=== PATIENT | male | born 1955 | race Caucasian/White ===

== ENCOUNTER 2022-01-07 14:28 | Inpatient (IN) ==
[2022-01-07] MEDS ORDERED: ZANAFLEX PO PRN (16:21)
[2022-01-07 17:07] LABS: BLOOD UREA NITROGEN 9 mg/dL (7-18); CALCIUM 9.2 mg/dL (8.5-10.1); CARBON DIOXIDE 26.7 mmol/L (21-32); CHLORIDE 96 mmol/L (98-107); CREATININE 0.55 mg/dL (0.70-1.30); SODIUM 131 mmol/L (136-145); eGFR NON BLACK RACES > 60 (>60)
[2022-01-07] MEDS: PERCOCET TAB 5/325 MG PO PRN (17:11)
[2022-01-07] MEDS: LR 1,000 ML IV 1,000 ML IV SCH (17:11)
[2022-01-07] MEDS ORDERED: HEPARIN SODIUM INJ 5000 UNITS IVP ONE (17:52)
[2022-01-07 17:53] LABS: BASOPHILS # (AUTO) 0.1 X10^3/uL (0.0-0.1); BASOPHILS % (AUTO) 0.7 % (0.2-1.0); EOSINOPHILS # (AUTO) 0.1 x10^3/uL (0.0-0.2); EOSINOPHILS % (AUTO) 0.5 % (0.9-2.9); HEMATOCRIT 37.6 % (42.0-54.0); HEMOGLOBIN 12.4 g/dL (13.5-18.0); LYMPHOCYTES % (AUTO) 7.7 % (21.0-51.0); MEAN CORPUSCULAR HEMOGLOBIN 30.9 pg (27.0-34.0); MEAN CORPUSCULAR HGB CONC 33.1 g/dL (33.0-35.0); MEAN CORPUSCULAR VOLUME 93.4 fL (80.0-100.0); MEAN PLATELET VOLUME 7.4 fL (7.4-11.0); MONOCYTES # (AUTO) 0.9 x10^3/uL (0.3-0.8); MONOCYTES % (AUTO) 7.4 % (0.0-13.0); NEUTROPHILS # (AUTO) 10.6 x10^3/uL (2.2-4.8); NEUTROPHILS % (AUTO) 83.7 % (42.0-75.0); RED BLOOD COUNT 4.02 X10^6/uL (4.7-6.0); RED CELL DISTRIBUTION WIDTH 16.9 % (11.6-16.5); WHITE BLOOD COUNT 12.6 X10^3/uL (3.6-10.0)
[2022-01-07] MEDS: HEPARIN SODIUM IN D5W 25,000 UNITS/500 ML BAG IV PRN (18:27)
[2022-01-07] MEDS ORDERED: PULMICORT NEB TX 0.5 MG NEB ONE (19:44)
[2022-01-07] MEDS: PULMICORT NEB TX 0.5 MG NEB SCH (20:39)
[2022-01-07] MEDS: SINGULAIR TAB 10 MG PO SCH (21:38)
[2022-01-07] MEDS: KEPPRA TAB 500 MG PO SCH (21:38)
[2022-01-07] MEDS: DILAUDID INJ IVP PRN (21:39)
[2022-01-07] MEDS: AMBIEN PO PRN (22:50)
--- NOTE | 2022-01-07 23:06 | DR.H&P ---
H&P History & Physical for Day of: H&P Date: 01/07/22 Chief Complaint Chief Complaint: Rest pain left foot with gangrenous changes if left great toe and 2nd toe. Allergies Allergies Allergy/AdvReac Type Severity Reaction Status Date / Time acetaminophen Allergy Verified 01/07/22 16:56 [From Darvocet-N] propoxyphene Allergy Verified 01/07/22 16:56 [From Darvocet-N] History of Present Illness History of Present Illness: 66 year old male seen in my office on January 04 with complaints of dry gangrene of the distal left great toe. Patient was scheduled for CTA of aorta with runoff and Doppler studies as he had no palpable distal pulses of either foot . He has a significant tobacco abuse history as well as a history of cerebrovascular accident with no residual neurological deficit and history of myocardial infarction. He had increasing rest pain of the left foot and now has early gangrenous changes of the tip of the left second toe which had occurred since I saw him in the office on 04 of January .Therefore, he presented to the emergency room for evaluation . Past Medical History Past Medical History: Arthritis, Asthma, COPD, CVA (no residual), GERD and AZ (history of AZ) Past Surgical History Surgical History: Angioplasty/Stents (reports revascularizationof LLE in the past , details unknown) and Ortho Surgery Family History Family Medical History: Cancer Social History Does patient currently use any type of tobacco product: Yes Have you used tobacco products in the last 12 months: Yes Type of Tobacco Use: Cigarettes How many years tobacco product used: 50 Alcohol Use: None Drug Use: None Prescription drug monitoring program results: PDMP reviewed with concerns ident ified Medications Home Medications: acetaminophen [From Darvocet-N] Allergy (Verified 01/07/22 16:56) propoxyphene [From Darvocet-N] Allergy (Verified 01/07/22 16:56) Eliquis 3. 5 mg BID Zolpidem 10 mg at bedtime Symbicort 2 puffs BiD Levetiracetam 500 mg BID Montelukast 10 mg po daily Esomeperazole 40 mg po daily Gabaprntin 600 mg po q day Tizanidine 4 m po TID Labs Result Diagrams: 01/07/22 17:45 01/07/22 16:50 Labs: Laboratory WBC 12.6 X10^3/uL (3.6-10.0) H 01/07/22 17:45 RBC 4.02 X10^6/uL (4.7-6.0) L 01/07/22 17:45 Hgb 12.4 g/dL (13.5-18.0) L 01/07/22 17:45 Hct 37.6 % (42.0-54.0) L 01/07/22 17:45 MCV 93.4 fL (80.0-100.0) 01/07/22 17:45 MCH 30.9 pg (27.0-34.0) 01/07/22 17:45 MCHC 33.1 g/dL (33.0-35.0) 01/07/22 17:45 RDW 16.9 % (11.6-16.5) H 01/07/22 17:45 Plt Count 306 X10^3/uL (150.0-450.0) 01/07/22 17:45 MPV 7.4 fL (7.4-11.0) 01/07/22 17:45 Neut % (Auto) 83.7 % (42.0-75.0) H 01/07/22 17:45 Lymph % (Auto) 7.7 % (21.0-51.0) L 01/07/22 17:45 Rush % (Auto) 7.4 % (0.0-13.0) 01/07/22 17:45 Eos % (Auto) 0.5 % (0.9-2.9) L 01/07/22 17:45 Baso % (Auto) 0.7 % (0.2-1.0) 01/07/22 17:45 Neut # (Auto) 10.6 x10^3/uL (2.2-4.8) H 01/07/22 17:45 Lymph # (Auto) 1.0 X10^3/uL (1.3-2.9) L 01/07/22 17:45 Rush # (Auto) 0.9 x10^3/uL (0.3-0.8) H 01/07/22 17:45 Eos # (Auto) 0.1 x10^3/uL (0.0-0.2) 01/07/22 17:45 Baso # (Auto) 0.1 X10^3/uL (0.0-0.1) 01/07/22 17:45 Absolute Nucleated RBC 0.1 /100WBC 01/07/22 17:45 PT 12.8 SECONDS (11.8-14.3) 01/07/22 16:50 INR Target Range - 01/07/22 16:50 INR 1.01 (0.8-1.3) 01/07/22 16:50 APTT 28.9 SECONDS (22.9-36.5) 01/07/22 16:50 PTT Comment - 01/07/22 16:50 Sodium 131 mmol/L (136-145) L 01/07/22 16:50 Corrected Sodium TNP 01/07/22 16:50 Potassium 4.7 mmol/L (3.5-5.1) 01/07/22 16:50 Chloride 96 mmol/L (98-107) L 01/07/22 16:50 Carbon Dioxide 26.7 mmol/L (21-32) 01/07/22 16:50 BUN 9 mg/dL (7-18) 01/07/22 16:50 Creatinine 0.55 mg/dL (0.70-1.30) L 01/07/22 16:50 Est GFR (MDRD) Af Amer > 60 (>60) 01/07/22 16:50 Est GFR (MDRD) Non-Af > 60 (>60) 01/07/22 16:50 Glucose 98 mg/dL (65-99) 01/07/22 16:50 Calcium 9.2 mg/dL (8.5-10.1) 01/07/22 16:50 SARS-CoV-2 (PCR) Negative (NEGATIVE) 01/07/22 14:49 Influenza Type A (PCR) Negative (NEGATIVE) 01/07/22 14:49 Influenza Type B (PCR) Negative (NEGATIVE) 01/07/22 14:49 RSV (PCR) Negative (NEGATIVE) 01/07/22 14:49 Review of Systems Constitutional: See HPI Eyes: No Symptoms Reported ENT: No Symptoms Reported Respiratory: No Symptoms Reported Cardiovascular: No Symptoms Reported Gastrointestinal: No Symptoms Reported Genitourinary: No Symptoms Reported Musculoskeletal: See HPI Skin: See HPI Neurological: No Symptoms Reported Physical Exam Vital Signs: Temperature 97.9 F Pulse Rate [Left Brachial] 99 Pulse Rate 99 Respiratory Rate 18 Blood Pressure [Left Arm] 137/83 O2 Sat by Pulse Oximetry 99 Oriented: Normal, Time, Person and Place Eyes: Normal Ear: Normal Nose: Normal Throat: Normal Respiratory: Diminished Throughout Cardiovascular: Normal and Other (Femoral pulses are papable . No distal pulses palpable either foot or ankle .) : Normal Auscultation: Bowel Sounds: Normal Palpation: Normal Tenderness: Normal Skin: Normal Musculoskeletal: Normal Psychiatric: Normal Mood Description: Anxious Speech Pattern: Clear Assessment/Plan (1) Critical limb ischemia of left lower extremity: Status: Acute Plan: Admit, heparin drip, CTA, ABIs, and ultrasound of arteries LE. Will need intervention of the left leg after studies done and will need amputation of the left great toe and possibly the left second toe as well. (2) COPD (chronic obstructive pulmonary disease): Status: Acute Plan: usual home medications (3) Hx of myocardial infarction: Status: Acute Plan: EKG , doubt stress test will be necessary as he has no chest pain. (4) History of CVA (cerebrovascular accident): Status: Acute (5) GERD (gastroesophageal reflux disease): Status: Acute Plan: po Protonix Review H&P Reviewed: Yes Patient was examined?: Yes
[2022-01-08] MEDS: HEPARIN SODIUM INJ 5000 UNITS IVP ONE ×2 (01:30→21:36)
[2022-01-08] MEDS ORDERED: HEPARIN SODIUM INJ 5000 UNITS ONE ×4 (01:37→21:25)
[2022-01-08] MEDS: DILAUDID INJ IVP PRN ×4 (02:35→18:46)
[2022-01-08] MEDS: LR 1,000 ML IV 1,000 ML IV SCH (06:43)
[2022-01-08] MEDS: KEPPRA TAB 500 MG PO SCH ×2 (08:45→21:53)
[2022-01-08] MEDS: NEURONTIN TAB 600 MG PO SCH (08:45)
[2022-01-08] MEDS: PROTONIX TAB 40 MG PO SCH (08:46)
[2022-01-08] MEDS: PERCOCET TAB 5/325 MG PO PRN ×3 (08:46→21:50)
[2022-01-08] MEDS: NICOTINE PATCH TD SCH (08:47)
[2022-01-08] MEDS: PULMICORT NEB TX 0.5 MG NEB SCH ×2 (08:55→20:20)
[2022-01-08] MEDS: HEPARIN SODIUM IN D5W 25,000 UNITS/500 ML BAG IV PRN (08:57)
[2022-01-08] MEDS: REFLEX: PROVENTIL NEB & PulmiCORT NEB~ NEB SCH ×2 (09:18→17:43)
[2022-01-08 10:39] VITALS: BMI 14.5
--- NOTE | 2022-01-08 12:46 | NOTE.SOAP ---
Soap Note Note for Day of Date of Exam: 01/08/22 Subjective Data Subjective Data: Left foot pain under better control . No further advancement of necrosis left foot. Objective Data Temperature: 98.3 F Pulse Rate: 89 Respiratory Rate: 20 Blood Pressure: 116/74 O2 Sat by Pulse Oximetry: 96 Objective Data: Unchanged . Assessment Assessment: Limb threatening ischemia left leg leg. For CTA today unless the C T scanner remains broken Plan Plan: As above, Continue heparin drip.
[2022-01-08] MEDS: SINGULAIR TAB 10 MG PO SCH (21:54)
[2022-01-08] MEDS: AMBIEN PO PRN (21:54)
[2022-01-09] MEDS: HEPARIN SODIUM IN D5W 25,000 UNITS/500 ML BAG IV PRN ×2 (00:16→23:57)
[2022-01-09] MEDS: DILAUDID INJ IVP PRN ×4 (03:55→18:20)
[2022-01-09] MEDS: LR 1,000 ML IV 1,000 ML IV SCH ×2 (07:42→23:00)
[2022-01-09] MEDS: KEPPRA TAB 500 MG PO SCH ×2 (09:35→21:54)
[2022-01-09] MEDS: PROTONIX TAB 40 MG PO SCH (09:35)
[2022-01-09] MEDS: NEURONTIN TAB 600 MG PO SCH (09:35)
[2022-01-09] MEDS: PULMICORT NEB TX 0.5 MG NEB SCH ×2 (09:49→20:55)
[2022-01-09] MEDS: NICOTINE PATCH TD SCH (10:00)
[2022-01-09] MEDS: PERCOCET TAB 5/325 MG PO PRN ×2 (10:15→16:39)
--- NOTE | 2022-01-09 19:18 | NOTE.SOAP ---
Soap Note Note for Day of Date of Exam: 01/09/22 Subjective Data Subjective Data: Stable, continues to complain of left foot pain. Unable to perform CT angiogram yesterday due to the CT scanner being down. Continues on Heparin drip. Objective Data Temperature: 97.9 F Pulse Rate: 97 Respiratory Rate: 18 Blood Pressure: 131/89 O2 Sat by Pulse Oximetry: 98 Objective Data: left great toe with gangrene .Tender left 2nd toe PTT=65.5 Assessment Assessment: Left leg critical limb threatening ischemia. Continue heparin drip. Arterial u/s and ABIs in AM. Will forego CTA since machine is not working and plan on table arteriogram and intervention either tomorrow or the next day. Will make NPO after midnight.
[2022-01-09] MEDS: SINGULAIR TAB 10 MG PO SCH (21:54)
[2022-01-09] MEDS: AMBIEN PO PRN (21:54)
[2022-01-10] MEDS: PERCOCET TAB 5/325 MG PO PRN ×2 (00:30→18:30)
[2022-01-10] MEDS: DILAUDID INJ IVP PRN ×4 (01:57→21:59)
[2022-01-10 06:53] LABS: BASOPHILS % (AUTO) 0.8 % (0.2-1.0); EOSINOPHILS # (AUTO) 0.1 x10^3/uL (0.0-0.2); EOSINOPHILS % (AUTO) 2.5 % (0.9-2.9); HEMOGLOBIN 9.9 g/dL (13.5-18.0); LYMPHOCYTES # (AUTO) 0.6 X10^3/uL (1.3-2.9); LYMPHOCYTES % (AUTO) 12.5 % (21.0-51.0); MEAN CORPUSCULAR HEMOGLOBIN 30.4 pg (27.0-34.0); MEAN CORPUSCULAR VOLUME 92.2 fL (80.0-100.0); MEAN PLATELET VOLUME 7.9 fL (7.4-11.0); MONOCYTES # (AUTO) 0.5 x10^3/uL (0.3-0.8); MONOCYTES % (AUTO) 10.7 % (0.0-13.0); NEUTROPHILS # (AUTO) 3.6 x10^3/uL (2.2-4.8); NEUTROPHILS % (AUTO) 73.5 % (42.0-75.0); RED BLOOD COUNT 3.25 X10^6/uL (4.7-6.0); RED CELL DISTRIBUTION WIDTH 16.7 % (11.6-16.5); WHITE BLOOD COUNT 4.9 X10^3/uL (3.6-10.0)
[2022-01-10 07:11] LABS: ALANINE AMINOTRANSFERASE 17 Units/L (12-78); ALKALINE PHOSPHATASE 109 Units/L (46-116); ASPARTATE AMINO TRANSFERASE 16 Units/L (15-37); BLOOD UREA NITROGEN 3 mg/dL (7-18); CALCIUM 8.3 mg/dL (8.5-10.1); CARBON DIOXIDE 24.9 mmol/L (21-32); CHLORIDE 104 mmol/L (98-107); COR CA(FOR HYPOALB) 9.9 mg/dL (8.5-10.1); CREATININE 0.51 mg/dL (0.70-1.30); SODIUM 138 mmol/L (136-145); TOTAL PROTEIN 5.3 g/dL (6.4-8.2); eGFR NON BLACK RACES > 60 (>60)
[2022-01-10] MEDS: PULMICORT NEB TX 0.5 MG NEB SCH ×2 (08:50→21:10)
[2022-01-10] MEDS ORDERED: MARCAINE 0.5% ONE (09:05)
[2022-01-10] MEDS ORDERED: HEPARIN SODIUM IN D5W 75,000 UNITS/1,500 ML BAG ONE (09:05)
[2022-01-10] MEDS ORDERED: LR 1,000 ML IV 1,000 ML IV ONE (09:07)
[2022-01-10] MEDS ORDERED: NS 100 ML IV 100 ML ONE (09:10)
[2022-01-10] MEDS ORDERED: ANCEF VIAL 1 GRAM ONE (09:10)
[2022-01-10] MEDS ORDERED: FENTANYL VIAL INJ 100 mcg ONE (09:13)
[2022-01-10] MEDS ORDERED: VERSED ONE ×3 (09:14→11:09)
[2022-01-10] MEDS ORDERED: DIPRIVAN VIAL 20 ML ONE ×2 (09:14→10:27)
[2022-01-10] MEDS ORDERED: DIPRIVAN VIAL ONE (09:19)
[2022-01-10] MEDS ORDERED: HEPARIN SODIUM INJ 5000 UNITS ONE ×2 (09:19)
[2022-01-10] MEDS ORDERED: KETAMINE HCL ONE (09:26)
[2022-01-10] MEDS ORDERED: PROTAMINE SULFATE 50 MG VIAL ONE (09:26)
[2022-01-10] MEDS: NEURONTIN TAB 600 MG PO SCH (11:17)
[2022-01-10] MEDS: KEPPRA TAB 500 MG PO SCH ×2 (11:17→21:05)
[2022-01-10] MEDS: PROTONIX TAB 40 MG PO SCH (11:18)
[2022-01-10] MEDS: NICOTINE PATCH TD SCH ×2 (11:18→13:00)
[2022-01-10] MEDS ORDERED: DILAUDID INJ ONE (11:42)
--- NOTE | 2022-01-10 11:56 | OR.IMMED ---
IMMEDIATE POST-OP NOTE Immediate Post-Op Note Pre-Op Diagnosis: Rest pain left leg, gangrenous changes Left great toe Post-Op Diagnosis: same Procedure: aortogram, left lower extremity arteriogram , balloon angioplasty left posterior tibial and left anterior tibial arteries,atherectomy and drug- coated balloon angioplasty left superficial femoral artery , amputation left great toe Description of Procedure: see operative summary Surgeon/Manager Sterile: Philip Findings: Severe disease mid superficial femoral artery left leg. Complete occlusion distal left anterior tibial and distal left posterior tibial artery left leg Specimens Removed: plaque Estimated Blood Loss: 100 cc Drains: NONE Complications: none Discharge Progress Notes: return to floor. Discontinue Heparin drip. Return to floor. Discontinue Heparin drip. Discontinued right groin sheath later today Condition: Stable Final Diagnosis: as above
[2022-01-10] MEDS ORDERED: MICRO K EXTEN CAP 10 MEQ PO PRN (13:49)
[2022-01-10] MEDS ORDERED: POTASSIUM CHL 40 MEQ/NS 0.45% 500 ML IV PRN (13:49)
[2022-01-10] MEDS ORDERED: K-RIDER 10 MEQ/NS 100 ML 10 MEQ/100 ML BAG IV PRN (13:49)
[2022-01-10] MEDS ORDERED: POTASSIUM CHL 60 MEQ/NS 0.45% 500 ML IV PRN (13:49)
[2022-01-10] MEDS ORDERED: MAGNESIUM SULFATE 1 GRAM/100 mL PREMIX 1 G/100 ML BAG IV PRN (13:49)
[2022-01-10] MEDS ORDERED: POTASSIUM CHLORIDE LIQ 20 MEQ UDC PO PRN (13:49)
[2022-01-10] MEDS ORDERED: KLOR-CON PO PRN (13:49)
[2022-01-10] MEDS ORDERED: K-DUR TAB 20 MEQ PO PRN (13:49)
--- NOTE | 2022-01-10 17:24 | DR.OPNOTE ---
OP NOTE Pre-Op Diagnosis: Rest pain left lower extremity, gangrene left great toe Post-Op Diagnosis: same Procedure Date Date Of Procedure: 01/10/22 Procedure: PROCEDURE : diagnostic aortogram , Diagnostic arteriogram left lower extremity, angioplasty left posterior tibial artery , angioplasty left anterior tibial artery, atherectomy and drug-coated balloon angioplasty left superficial femoral artery NARRATIVE: The patient was taken to the operative suite and placed in the Supine position. The right groin and the left lower extremity were prepped and draped in sterile fashion. He was given intravenous sedation which was supervised by myself. Time out for the procedure obtained. Ultrasound was used to identify the right common femoral artery and the skin overlying it infiltrated with 0. 5% Marcaine. Ultrasound used to guide puncture of the right common femoral artery and a 0. 012 inch guide wire placed . Incision made over the guide wire at the skin edge and micro sheath placed over the guide wire into the right common femoral artery. The small wire exchanged for a 0. 035 in Advantage glidewire and the micro sheath exchanged for a 5 Fr vascular sheath . RIM catheter was placed over the guide wire into the aorta and diagnostic aortogram carried out showing normal aorta and normally iliac arteries bilaterally. The RIM catheter was used to guide the wire down the left side and the RIM catheter replaced for a Trailblazer catheter which was used to perform sequential arteriogram of the entire left lower extremity showing severe disease in the mid portion of the left superficial femoral artery with distal obstruction of both the left anterior and posterior tibial arteries. The patient was given 5000 units of Heparin and the sheath in the right groin exchanged for a 6 Swedish destination sheath which was parked in the left common femoral artery. The Trailblazer catheter was placed all the way down into the posterior tibial artery and the large wire exchanged for a 0. 014 inch guide wire . Over the wire I placed a 2. 5x 150 mm [employer] balloon and inflated it. Post-procedure arteriogram showed excellent result with flow all the way to the foot. Trailblazer catheter was pulled back into the tibial-peroneal trunk and the 0. 014 inch wire exchanged for a 0. 018 inch wire which was used to traverse the entire left anterior tibial artery across this obstruction into the left foot. This area of obstruction was ballooned open with a 2.0 mmx 100 mm [employer] balloon. Repeat arteriogram show excellent results here as well. At this point the Trailblazer catheter was backed up into the popliteal artery and a 0. 18 inch wire exchanged for the 0.014 inch Spider basket and wire which were deployed in the left popliteal artery . Hawk one atherectomy device was then placed over the wire and used to perform four quadrant atherectomy over the area of severe disease in the mid portion of the left superficial femoral artery over the area in question and then ballooned it open with a 6 mm by 200 mm [employer] drug-coated balloon which was inflated for 3 minutes .Arteriogram still showed evidence of filling defect in the mid portion of approximately 15 mm ,therefore I placed a 6 mm by 80 mm Alluvia drug-coated stent over it and deployed it. Arteriogram showed excellent result. Patient had been given an additional 3000 units of Heparin at one hour. Trailblazer catheter used to remove the Spider basket and the destination sheath pulled back into the aorta and the 0. 035 inch wire placed into the aorta. The 6 Swedish destination sheath was exchanged for a 6 Swedish short sheath in the right groin and the patient taken to the recovery room in good condition. He was given 30 mg of IV protamine. The left great toe had already been prepped and draped in sterile fashion and the skin at the base the left great toe infiltrated with 20 cc's of 0. 5% Marcaine. And elliptical incision was made at the base of the left great toe and electrocautery used to divide all the subcutaneous tissue and tendons and Joint capsule between the metatarsal - phalangeal joint removing the left great toe. The head of the metatarsal removed with a Rongeur The wound closed with interrupted 3-0 Nylon sutures. Dressing applied . The right groin sheath was pulled by me later on the floor and the patient did well. Type of Anesthesia: Local (0. 5% marcaine ) Anesthesia Comment: plus MAC Specimen/Pathology: plaque Type of Fluids Used:: Lactated Ringers Total Amount of Fluid Infused:: 650 cc Urine output: 650cc EBL: 100 cc Drains/Tubes Placed: Howard (removed at end of case ) Complications:: none Needle/Sponge Count:: correct Disposition/Condition: Pt. tolerated procedure without difficulty. Taken to PACU in stable condition
[2022-01-10] MEDS ORDERED: REMERON PO SCH (21:00)
[2022-01-10] MEDS: AMBIEN PO PRN (21:05)
[2022-01-10] MEDS: SINGULAIR TAB 10 MG PO SCH (21:05)
[2022-01-10] MEDS: LR 1,000 ML IV 1,000 ML IV SCH (23:35)
[2022-01-11] MEDS: LR 1,000 ML IV 1,000 ML IV SCH (05:45)
[2022-01-11] MEDS: PERCOCET TAB 5/325 MG PO PRN (06:46)
[2022-01-11] MEDS: PULMICORT NEB TX 0.5 MG NEB SCH (08:50)
[2022-01-11] MEDS ORDERED: LOVENOX INJ 40 MG SYR SC SCH (09:00)
[2022-01-11] MEDS: DILAUDID INJ IVP PRN (09:10)
[2022-01-11] MEDS: NICOTINE PATCH TD SCH (10:26)
[2022-01-11] MEDS: KEPPRA TAB 500 MG PO SCH (10:26)
[2022-01-11] MEDS: PROTONIX TAB 40 MG PO SCH (10:26)
[2022-01-11] MEDS: NEURONTIN TAB 600 MG PO SCH (10:27)
--- NOTE | 2022-01-11 12:01 | W.DIS.FURT ---
Summary of Discharge Discharge Summary of Date Date of Exam: 01/11/22 Admission Date Date of Admission: 01/07/22 Admission Diagnosis Hospital Course: 66 yo male seen in the office with gangrene of left great toe and rest pain left foot with history of significant tobacco abuse . He was to have multiple vascular studies but presented with increasing rest pain of the left foot with discoloration over the end of the left second toe. He was admitted and placed on a Heparin drip and his pain controlled. Attempts to obtain a CT angiogram were unsuccessful as the CT scanner was broken therefore I planned to take him to the operating Suite on Monday , performing on table ateriogram of the left lower extremity showing significant stenosis of the left superficial femoral artery and complete occlusion of both the distal anterior tibial and posterior tibial arteries. He underwent angioplasty of both the anterior tibial and posterior tibial arteries as well as atherectomy and drug-coated balloon angioplasty left superficial femoral artery. In addition he had amputation of the left great toe. He has done well. He will be discharged home on his usual medications plus Percocet 5 mg tablets when every 6 hours PRN, #30 . He is already on Oxcodone chronically and I have spoken to DEBORAH Pack for Dr. Raymond ,about this and he will handle the pain medications as he sees fit . The patient is already on Eliquis. He is having post-procedure arterial studies today to assess the flow after intervention. He will be given a walker and will follow up with me in 1 week. Vital Signs: Vital Signs (72 hours) 01/08/22 12:46 01/08/22 13:00 01/08/22 13:30 Temperature 98.3 F 97.6 F Pulse Rate 89 Pulse Rate [Left Brachial] 106 H Respiratory Rate 20 18 20 Blood Pressure 116/74 Blood Pressure [Left Arm] 123/86 O2 Sat by Pulse Oximetry 96 99 01/08/22 14:00 01/08/22 15:00 01/08/22 15:30 Temperature Pulse Rate Pulse Rate [Left Brachial] 106 H 106 H Respiratory Rate 20 18 18 Blood Pressure Blood Pressure [Left Arm] 123/86 127/86 O2 Sat by Pulse Oximetry 99 99 01/08/22 16:00 01/08/22 16:30 01/08/22 17:00 Temperature 97.3 F L Pulse Rate Pulse Rate [Left Brachial] 97 H 100 H Respiratory Rate 18 12 18 Blood Pressure Blood Pressure [Left Arm] 131/89 128/82 O2 Sat by Pulse Oximetry 99 99 01/08/22 18:00 01/08/22 18:46 01/08/22 19:00 Temperature 98.1 F Pulse Rate Pulse Rate [Left Brachial] 96 H 94 H Respiratory Rate 18 20 20 Blood Pressure Blood Pressure [Left Arm] 116/80 110/78 O2 Sat by Pulse Oximetry 100 98 01/08/22 19:16 01/08/22 20:00 01/08/22 20:20 Temperature Pulse Rate 91 H Pulse Rate [Left Brachial] 89 Respiratory Rate 20 18 Blood Pressure Blood Pressure [Left Arm] 106/78 O2 Sat by Pulse Oximetry 100 98 01/08/22 21:00 01/08/22 21:50 01/08/22 22:00 Temperature Pulse Rate Pulse Rate [Left Brachial] 103 H 110 H Respiratory Rate 20 20 20 Blood Pressure Blood Pressure [Left Arm] 111/73 110/68 O2 Sat by Pulse Oximetry 99 98 01/08/22 22:50 01/08/22 23:00 01/09/22 00:00 Temperature 97.5 F L Pulse Rate Pulse Rate [Left Brachial] 114 H 91 H Respiratory Rate 20 18 20 Blood Pressure Blood Pressure [Left Arm] 120/80 110/78 O2 Sat by Pulse Oximetry 96 97 01/09/22 01:00 01/09/22 02:00 01/09/22 03:55 Temperature Pulse Rate Pulse Rate [Left Brachial] 93 H 93 H Respiratory Rate 18 20 20 Blood Pressure Blood Pressure [Left Arm] 108/70 109/75 O2 Sat by Pulse Oximetry 97 98 01/09/22 04:00 01/09/22 04:25 01/09/22 05:00 Temperature 98.0 F Pulse Rate Pulse Rate [Left Brachial] 96 H 86 Respiratory Rate 20 20 20 Blood Pressure Blood Pressure [Left Arm] 124/69 117/75 O2 Sat by Pulse Oximetry 98 97 01/09/22 06:00 01/09/22 07:00 01/09/22 08:00 Temperature 97.1 F L Pulse Rate Pulse Rate [Left Brachial] 88 98 H 93 H Respiratory Rate 22 18 18 Blood Pressure Blood Pressure [Left Arm] 129/74 123/88 127/82 O2 Sat by Pulse Oximetry 99 98 98 01/09/22 08:38 01/09/22 09:00 01/09/22 09:08 Temperature Pulse Rate Pulse Rate [Left Brachial] 96 H Respiratory Rate 20 18 20 Blood Pressure Blood Pressure [Left Arm] 124/79 O2 Sat by Pulse Oximetry 98 01/09/22 09:50 01/09/22 10:00 01/09/22 10:15 Temperature Pulse Rate 88 Pulse Rate [Left Brachial] 90 Respiratory Rate 18 20 Blood Pressure Blood Pressure [Left Arm] 143/78 O2 Sat by Pulse Oximetry 99 98 01/09/22 11:00 01/09/22 11:15 01/09/22 12:00 Temperature 97.6 F Pulse Rate Pulse Rate [Left Brachial] 96 H 104 H Respiratory Rate 18 20 18 Blood Pressure Blood Pressure [Left Arm] 126/85 146/77 O2 Sat by Pulse Oximetry 99 99 01/09/22 13:00 01/09/22 14:00 01/09/22 14:35 Temperature Pulse Rate Pulse Rate [Left Brachial] 104 H 105 H Respiratory Rate 18 18 20 Blood Pressure Blood Pressure [Left Arm] 127/88 145/85 O2 Sat by Pulse Oximetry 99 96 01/09/22 15:00 01/09/22 15:05 01/09/22 16:00 Temperature 97.9 F Pulse Rate Pulse Rate [Left Brachial] 94 H 99 H Respiratory Rate 18 20 18 Blood Pressure Blood Pressure [Left Arm] 137/94 104/88 O2 Sat by Pulse Oximetry 99 99 01/09/22 16:39 01/09/22 17:00 01/09/22 17:39 Temperature Pulse Rate Pulse Rate [Left Brachial] 95 H Respiratory Rate 22 18 20 Blood Pressure Blood Pressure [Left Arm] 139/84 O2 Sat by Pulse Oximetry 93 L 01/09/22 18:00 01/09/22 18:20 01/09/22 18:50 Temperature Pulse Rate Pulse Rate [Left Brachial] 97 H Respiratory Rate 18 20 20 Blood Pressure Blood Pressure [Left Arm] 131/89 O2 Sat by Pulse Oximetry 98 01/09/22 19:00 01/09/22 19:18 01/09/22 20:00 Temperature 97.9 F 98.2 F Pulse Rate 97 H Pulse Rate [Left Brachial] 105 H 93 H Respiratory Rate 20 18 20 Blood Pressure 131/89 Blood Pressure [Left Arm] 145/95 139/84 O2 Sat by Pulse Oximetry 96 98 95 01/09/22 20:55 01/09/22 21:00 01/09/22 22:00 Temperature Pulse Rate 92 H Pulse Rate [Left Brachial] 95 H 91 H Respiratory Rate 20 20 Blood Pressure Blood Pressure [Left Arm] 137/82 137/88 O2 Sat by Pulse Oximetry 94 L 95 96 01/09/22 23:00 01/10/22 00:00 01/10/22 00:30 Temperature 98.0 F Pulse Rate Pulse Rate [Left Brachial] 87 97 H Respiratory Rate 18 20 20 Blood Pressure Blood Pressure [Left Arm] 134/86 135/91 O2 Sat by Pulse Oximetry 96 98 01/10/22 01:00 01/10/22 01:30 01/10/22 01:57 Temperature Pulse Rate Pulse Rate [Left Brachial] 93 H Respiratory Rate 18 20 20 Blood Pressure Blood Pressure [Left Arm] 133/90 O2 Sat by Pulse Oximetry 01/10/22 02:00 01/10/22 02:27 01/10/22 03:00 Temperature Pulse Rate Pulse Rate [Left Brachial] 110 H 93 H Respiratory Rate 18 20 20 Blood Pressure Blood Pressure [Left Arm] 125/86 127/85 O2 Sat by Pulse Oximetry 01/10/22 04:00 01/10/22 06:00 01/10/22 07:00 Temperature 97.9 F 97.9 F Pulse Rate Pulse Rate [Left Brachial] 87 96 H 96 H Respiratory Rate 20 20 22 Blood Pressure Blood Pressure [Left Arm] 133/89 137/86 140/86 O2 Sat by Pulse Oximetry 97 98 98 01/10/22 08:00 01/10/22 08:50 01/10/22 11:42 Temperature Pulse Rate 95 H Pulse Rate [Left Brachial] 86 Respiratory Rate 20 18 Blood Pressure Blood Pressure [Left Arm] 155/94 O2 Sat by Pulse Oximetry 93 L 99 01/10/22 11:50 01/10/22 12:05 01/10/22 12:12 Temperature 97.6 F 97.6 F Pulse Rate Pulse Rate [Left Brachial] 91 H 92 H Respiratory Rate 20 18 22 Blood Pressure Blood Pressure [Left Arm] 106/78 128/78 O2 Sat by Pulse Oximetry 96 98 01/10/22 12:20 01/10/22 12:35 01/10/22 12:50 Temperature 97.6 F 97.6 F Pulse Rate Pulse Rate [Left Brachial] 91 H 87 82 Respiratory Rate 20 18 20 Blood Pressure Blood Pressure [Left Arm] 140/95 139/90 136/88 O2 Sat by Pulse Oximetry 98 98 98 01/10/22 13:50 01/10/22 14:50 01/10/22 15:25 Temperature Pulse Rate Pulse Rate [Left Brachial] 95 H 95 H Respiratory Rate 20 22 22 Blood Pressure Blood Pressure [Left Arm] 132/91 138/85 O2 Sat by Pulse Oximetry 98 99 01/10/22 15:50 01/10/22 15:55 01/10/22 16:50 Temperature 97.8 F Pulse Rate Pulse Rate [Left Brachial] 96 H 105 H Respiratory Rate 20 22 18 Blood Pressure Blood Pressure [Left Arm] 137/90 158/89 O2 Sat by Pulse Oximetry 96 97 01/10/22 17:00 01/10/22 18:00 01/10/22 18:30 Temperature Pulse Rate Pulse Rate [Left Brachial] 102 H 98 H Respiratory Rate 18 18 20 Blood Pressure Blood Pressure [Left Arm] 133/88 132/99 O2 Sat by Pulse Oximetry 97 99 01/10/22 19:30 01/10/22 20:00 01/10/22 21:10 Temperature Pulse Rate 96 H Pulse Rate [Left Brachial] 106 H Respiratory Rate 20 20 Blood Pressure Blood Pressure [Left Arm] 137/99 O2 Sat by Pulse Oximetry 97 97 01/10/22 21:59 01/10/22 22:29 01/11/22 00:33 Temperature 97.3 F L Pulse Rate Pulse Rate [Left Brachial] 98 H Respiratory Rate 20 20 18 Blood Pressure Blood Pressure [Left Arm] 120/74 O2 Sat by Pulse Oximetry 97 01/11/22 04:31 01/11/22 06:46 01/11/22 07:46 Temperature 97.8 F Pulse Rate Pulse Rate [Left Brachial] 96 H Respiratory Rate 18 20 20 Blood Pressure Blood Pressure [Left Arm] 129/86 O2 Sat by Pulse Oximetry 97 01/11/22 08:00 01/11/22 08:50 01/11/22 09:10 Temperature 98.0 F Pulse Rate 106 H Pulse Rate [Left Brachial] 94 H Respiratory Rate 20 20 Blood Pressure Blood Pressure [Left Arm] 146/88 O2 Sat by Pulse Oximetry 99 96 01/11/22 09:40 Temperature Pulse Rate Pulse Rate [Left Brachial] Respiratory Rate 20 Blood Pressure Blood Pressure [Left Arm] O2 Sat by Pulse Oximetry Labs: Laboratory Last Values WBC 4.9 X10^3/uL (3.6-10.0) 01/10/22 06:07 RBC 3.25 X10^6/uL (4.7-6.0) L 01/10/22 06:07 Hgb 9.9 g/dL (13.5-18.0) L D 01/10/22 06:07 Hct 30.0 % (42.0-54.0) L 01/10/22 06:07 MCV 92.2 fL (80.0-100.0) 01/10/22 06:07 MCH 30.4 pg (27.0-34.0) 01/10/22 06:07 MCHC 33.0 g/dL (33.0-35.0) 01/10/22 06:07 RDW 16.7 % (11.6-16.5) H 01/10/22 06:07 Plt Count 251 X10^3/uL (150.0-450.0) 01/10/22 06:07 MPV 7.9 fL (7.4-11.0) 01/10/22 06:07 Neut % (Auto) 73.5 % (42.0-75.0) 01/10/22 06:07 Lymph % (Auto) 12.5 % (21.0-51.0) L 01/10/22 06:07 [place] % (Auto) 10.7 % (0.0-13.0) 01/10/22 06:07 Eos % (Auto) 2.5 % (0.9-2.9) 01/10/22 06:07 Baso % (Auto) 0.8 % (0.2-1.0) 01/10/22 06:07 Neut # (Auto) 3.6 x10^3/uL (2.2-4.8) 01/10/22 06:07 Lymph # (Auto) 0.6 X10^3/uL (1.3-2.9) L 01/10/22 06:07 [place] # (Auto) 0.5 x10^3/uL (0.3-0.8) 01/10/22 06:07 Eos # (Auto) 0.1 x10^3/uL (0.0-0.2) 01/10/22 06:07 Baso # (Auto) 0.0 X10^3/uL (0.0-0.1) 01/10/22 06:07 Absolute Nucleated RBC 0.3 /100WBC 01/10/22 06:07 PT 12.8 SECONDS (11.8-14.3) 01/07/22 16:50 INR Target Range - 01/07/22 16:50 INR 1.01 (0.8-1.3) 01/07/22 16:50 APTT 61.6 SECONDS (22.9-36.5) H 01/10/22 06:07 PTT Comment - 01/10/22 06:07 Sodium 138 mmol/L (136-145) 01/10/22 06:07 Corrected Sodium TNP 01/10/22 06:07 Potassium 3.7 mmol/L (3.5-5.1) 01/11/22 02:35 Chloride 104 mmol/L (98-107) 01/10/22 06:07 Carbon Dioxide 24.9 mmol/L (21-32) 01/10/22 06:07 BUN 3 mg/dL (7-18) L 01/10/22 06:07 Creatinine 0.51 mg/dL (0.70-1.30) L 01/10/22 06:07 Est GFR (MDRD) Af Amer > 60 (>60) 01/10/22 06:07 Est GFR (MDRD) Non-Af > 60 (>60) 01/10/22 06:07 Glucose 103 mg/dL (65-99) H 01/10/22 06:07 Calcium 8.3 mg/dL (8.5-10.1) L 01/10/22 06:07 Corrected Calcium 9.9 mg/dL (8.5-10.1) 01/10/22 06:07 Magnesium 1.6 mg/dL (1.7-2.9) L 01/10/22 14:06 Total Bilirubin 0.20 mg/dL (0.2-1.0) 01/10/22 06:07 AST 16 Units/L (15-37) 01/10/22 06:07 ALT 17 Units/L (12-78) 01/10/22 06:07 Alkaline Phosphatase 109 Units/L (46-116) 01/10/22 06:07 Total Protein 5.3 g/dL (6.4-8.2) L 01/10/22 06:07 Albumin 2.0 g/dL (3.4-5.0) L 01/10/22 06:07 Globulin 3.3 g/dL (2.5-4.5) 01/10/22 06:07 Albumin/Globulin Ratio 0.6 Ratio (1.1-2.1) L 01/10/22 06:07 SARS-CoV-2 (PCR) Negative (NEGATIVE) 01/07/22 14:49 Influenza Type A (PCR) Negative (NEGATIVE) 01/07/22 14:49 Influenza Type B (PCR) Negative (NEGATIVE) 01/07/22 14:49 RSV (PCR) Negative (NEGATIVE) 01/07/22 14:49 Tissue Pathology To follow 01/10/22 11:15 Reason For Visit: LEFT GREAT TOE WOUND Discharge Date Discharge Date: 01/11/22 Discharge Diagnosis All Active Problems (Updated 01/07/22 @ 23:02 by Gianni Palacios) Critical limb ischemia of left lower extremity (Acute) History of CVA (cerebrovascular accident) (Acute) Hx of myocardial infarction (Acute) GERD (gastroesophageal reflux disease) (Acute) COPD (chronic obstructive pulmonary disease) (Acute) Plan of Treatment: Continue with present treatment and follow up plan. Pt is to keep follow up appointment as instructed and take medications as ordered. Discharge Medications Discharge Medications: acetaminophen [From Darvocet-N] Allergy (Verified 01/07/22 16:56) propoxyphene [From Darvocet-N] Allergy (Verified 01/07/22 16:56) CONTINUE taking the following medications budesonide-formoterol [Symbicort] 2 puff INHALATION BID 01/08/22 [History] esomeprazole magnesium 40 mg PO DAILY 01/08/22 [History] gabapentin 300 mg PO TID 01/08/22 [History] levetiracetam 1,000 mg PO DAILY 01/08/22 [History] mirtazapine 30 mg PO HS 01/08/22 [History] montelukast 10 mg PO DAILY 01/08/22 [History] oxycodone 20 mg PO Q6H PRN 01/08/22 [History] tizanidine 4 mg PO TID PRN 01/08/22 [History] New Prescriptions oxycodone-acetaminophen [Percocet] 1 tab PO Q6H PRN #30 tab MDD 4 01/11/22 [Rx] Follow up and Referral Follow Up: 1 Week (Dr. Palacios) Discharge Disposition Discharge Disposition: stable Discharge Condition: stable Discharge Plan Discharge Plan Hospital Course: 66 yo male seen in the office with gangrene of left great toe and rest pain left foot with history of significant tobacco abuse . He was to have multiple vascular studies but presented with increasing rest pain of the left foot with discoloration over the end of the left second toe. He was admitted and placed on a Heparin drip and his pain controlled. Attempts to obtain a CT angiogram were unsuccessful as the CT scanner was broken therefore I planned to take him to the operating Suite on Monday , performing on table ateriogram of the left lower extremity showing significant stenosis of the left superficial femoral artery and complete occlusion of both the distal anterior tibial and posterior tibial arteries. He underwent angioplasty of both the anterior tibial and posterior tibial arteries as well as atherectomy and drug- coated balloon angioplasty left superficial femoral artery. In addition he had amputation of the left great toe. He has done well. He will be discharged home on his usual medications plus Percocet 5 mg tablets when every 6 hours PRN, #30 . He is already on Oxcodone chronically and I have spoken to DEBORAH Pack for Dr. Raymond ,about this and he will handle the pain medications as he sees fit . The patient is already on Eliquis. He is having post-procedure arterial studies today to assess the flow after intervention. He will be given a walker and will follow up with me in 1 week. Patient Disposition: 01 HOME, SELF-CARE Condition: Stable Health Concerns: Post Hospitalization: new medications and changes needed to prevent readmission or further decline. Pt educated and given instructions on all concerns. Care Plan Goals: Problem: Pain/Alteration in Comfort Goal: Improve/ Resolve Pain; Achieve Pain Tolerance Instructions: Take pain medications as prescribed. Contact your primary care provider if your pain is unrelieved or worsens. Follow up with primary care provider as directed. Plan of Treatment: Continue with present treatment and follow up plan. Pt is to keep follow up appointment as instructed and take medications as ordered. Prescriptions: New oxycodone-acetaminophen [Percocet] 5-325 mg Tablet 1 tab PO Q6H MDD 4 PRNQty: 30 RF: 0 No Action tizanidine 4 mg tablet 4 mg PO TID PRN (Reason: Muscle Spasm) RF: 0 mirtazapine 30 mg tablet 30 mg PO HS RF: 0 esomeprazole magnesium 40 mg capsule,delayed release(DR/EC) 40 mg PO DAILY RF: 0 gabapentin 300 mg capsule 300 mg PO TID RF: 0 montelukast 10 mg tablet 10 mg PO DAILY RF: 0 budesonide-formoterol [Symbicort] 160-4.5 mcg/actuation HFA aerosol inhaler 2 puff INHALATION BID RF: 0 oxycodone 20 mg tablet 20 mg PO Q6H PRN (Reason: Pain) RF: 0 levetiracetam 500 mg tablet extended release 24 hr 1,000 mg PO DAILY RF: 0 Follow ups/Referrals Follow ups/Referrals: JESSY RAYMOND [Primary Care Provider] - 01/19/22 3:30 pm Gianni Palacios [STAFF PHYSICIAN] - 01/18/22 9:30 am Instructions Instructions: Managing the Challenge of Quitting Smoking, Smoking Tobacco Information, Adult, Living With an Amputation, Gangrene, Phantom Limb Pain, Traumatic Toe Amputation, Diabetic Neuropathy, Preventing Diabetes Mellitus Complications Stand Alone Forms: Excuse From Work or School, Precautions for COVID19, [facility], Patient Portal, Social Distancing
--- NOTE | 2022-01-11 14:11 | VAS ---
LOWER EXT ARTERIALHISTORY: Left great toe woundComparison:NoneTechnique: Multiple zamorano scale and color flow Doppler images of the right and left lower extremity arterial system were obtained. Interrogation of the common femoral artery, superficial femoral artery, popliteal artery, and tibial arteries was performed.Findings:Right extremity:Common femoral : 93 cm/sSuperficial femoral proximal: 57 cm/sSuperficial femoral mid: 118 cm/sSuperficial femoral distal : 103 cm/sPopliteal : 108 cm/sPosterior tibial : 17 cm/sAnterior tibial /dorsalis pedis: 65 cm/sLeft extremity:Common femoral : 60 cm/sSuperficial femoral proximal: 78 cm/sSuperficial femoral mid: 71 cm/sSuperficial femoral distal :54 cm/sPopliteal : 70 cm/sPosterior tibial : 37 cm/sAnterior tibial /dorsalis pedis: 9 cm/sTechnologist reports that the distal left dorsalis pedis is occluded 3-4 cm above the toe. No images supporting this claim were submitted for review.IMPRESSION:1.No velocities suggestive of hemodynamically significant stenosis of the right and left lower extremity arterial system.2. Technologist reports that the distal left dorsalis pedis is occluded 3-4 cm above the toe. No images supporting this claim were submitted for review.Http://www.ncbi.nlm.nih.gov/pubmed/41622674Aomng ronically signed by: RUBY JOE (Jan 11, 2022 14:10:01)
[2022-01-11 16:10] VITALS: BP 116/69
== END 2022-01-11 15:55 | disposition home or self-care (01) | DRG 272 ==
LOC: MED/SURG → OBSVTOIN 14:29
PROVIDERS: ADMIT Surgery; ATTEND Surgery
DX: J44.9 Chronic obstructive pulmonary disease, unspecified; I25.2 Old myocardial infarction; Z72.0 Tobacco use; I70.262 Atherosclerosis of native arteries of extremities with gangrene, left leg; K21.9 Gastro-esophageal reflux disease without esophagitis; Z86.73 Personal history of transient ischemic attack (TIA), and cerebral infarction without residual deficits; I70.222 Atherosclerosis of native arteries of extremities with rest pain, left leg

== ENCOUNTER 2022-01-20 08:52 | Inpatient (IN) ==
[2022-01-20] MEDS ORDERED: HEPARIN SODIUM IN D5W 25,000 UNITS/500 ML BAG IV PRN (14:25)
[2022-01-20 14:49] LABS: MEAN PLATELET VOLUME 7.2 fL (7.4-11.0); MONOCYTES # (AUTO) 1.4 x10^3/uL (0.3-0.8)
[2022-01-20 14:53] LABS: BASOPHILS # (AUTO) 0.1 X10^3/uL (0.0-0.1); BASOPHILS % (AUTO) 0.4 % (0.2-1.0); EOSINOPHILS # (AUTO) 0.3 x10^3/uL (0.0-0.2); EOSINOPHILS % (AUTO) 1.5 % (0.9-2.9); HEMATOCRIT 34.8 % (42.0-54.0); HEMOGLOBIN 11.6 g/dL (13.5-18.0); LYMPHOCYTES % (AUTO) 5.6 % (21.0-51.0); MEAN CORPUSCULAR HEMOGLOBIN 31.1 pg (27.0-34.0); MEAN CORPUSCULAR HGB CONC 33.4 g/dL (33.0-35.0); MEAN CORPUSCULAR VOLUME 93.2 fL (80.0-100.0); MONOCYTES % (AUTO) 8.1 % (0.0-13.0); NEUTROPHILS # (AUTO) 14.3 x10^3/uL (2.2-4.8); NEUTROPHILS % (AUTO) 84.4 % (42.0-75.0); RED BLOOD COUNT 3.73 X10^6/uL (4.7-6.0); RED CELL DISTRIBUTION WIDTH 16.5 % (11.6-16.5)
[2022-01-20 15:02] LABS: PLATELET MORPHOLOGY COMMENT NORMAL (NORMAL)
[2022-01-20 15:06] LABS: ALANINE AMINOTRANSFERASE 17 Units/L (12-78); ALBUMIN 2.6 g/dL (3.4-5.0); ALKALINE PHOSPHATASE 179 Units/L (46-116); ASPARTATE AMINO TRANSFERASE 21 Units/L (15-37); BLOOD UREA NITROGEN 8 mg/dL (7-18); CALCIUM 8.7 mg/dL (8.5-10.1); CARBON DIOXIDE 27.3 mmol/L (21-32); CHLORIDE 102 mmol/L (98-107); COR CA(FOR HYPOALB) 9.8 mg/dL (8.5-10.1); SODIUM 135 mmol/L (136-145); TOTAL PROTEIN 6.9 g/dL (6.4-8.2); eGFR NON BLACK RACES > 60 (>60)
--- NOTE | 2022-01-20 15:10 | RAD ---
Chest AP portableIndication: Preop for left foot woundFINDINGSThere is no pneumothorax or effusion. There is no dense consolidation. Lungs are hyperinflated with pleural thickening at the bases, particularly on the left.IMPRESSIONCOPD and scarring in lung bases without acute chest process otherwise. Consider nonemergent outpatient CT lung cancer screening program, given findings of COPD and possible smoking history. Correlate clinicallyElectronically signed by: GAVIN LARRY (Jan 20, 2022 15:08:55)
[2022-01-20 15:48] VITALS: BMI 15.6
[2022-01-20] MEDS ORDERED: ROXICODONE TAB 15 MG PO PRN (16:01)
[2022-01-20] MEDS ORDERED: HEPARIN SODIUM INJ 5000 UNITS IVP ONE (16:41)
[2022-01-20] MEDS: LR 1,000 ML IV 1,000 ML IV SCH (16:55)
[2022-01-20] MEDS ORDERED: PULMICORT NEB TX 0.5 MG NEB ONE (19:57)
[2022-01-20] MEDS ORDERED: Atrovent NEB TX 0.02% ONE (19:57)
[2022-01-20] MEDS: DILAUDID INJ IVP PRN (20:57)
[2022-01-20] MEDS: REMERON PO SCH (20:57)
[2022-01-20] MEDS: SINGULAIR TAB 10 MG PO SCH (20:57)
[2022-01-20] MEDS: PULMICORT NEB TX 0.5 MG NEB SCH (21:00)
[2022-01-20] MEDS ORDERED: AMBIEN PO PRN (21:00)
[2022-01-20] MEDS: Atrovent NEB TX 0.02% NEB SCH (21:00)
[2022-01-20] MEDS: NEURONTIN CAP 300 MG PO SCH (22:05)
[2022-01-20] MEDS: ZANAFLEX PO SCH (22:06)
[2022-01-20 23:27] LABS: BILIRUBIN,URINE NEGATIVE (NEGATIVE); BLOOD/HEMOGLOBIN,URINE NEGATIVE (NEGATIVE); GLUCOSE, URINE NEGATIVE (NEGATIVE); KETONES,URINE NEGATIVE (NEGATIVE); LEUKOCYTE ESTERASE ,URINE NEGATIVE (NEGATIVE); NITRITES,URINE NEGATIVE (NEGATIVE); PROTEIN,URINE NEGATIVE (NEGATIVE); UROBILINOGEN,URINE NORMAL (NORMAL)
[2022-01-20 23:33] LABS: APPEARANCE,URINE CLEAR (CLEAR); COLOR,URINE STRAW (YELLOW)
[2022-01-20] MEDS ORDERED: LOPRESSOR INJ 5 MG AMP IVP STA (23:44)
[2022-01-21] MEDS ORDERED: HEPARIN SODIUM INJ 5000 UNITS IVP ONE (00:02)
[2022-01-21] MEDS ORDERED: BENADRYL CREAM TOPICAL TOP PRN (00:43)
[2022-01-21 05:02] LABS: BASOPHILS % (AUTO) 0.3 % (0.2-1.0); EOSINOPHILS # (AUTO) 0.1 x10^3/uL (0.0-0.2); EOSINOPHILS % (AUTO) 0.8 % (0.9-2.9); HEMATOCRIT 28.6 % (42.0-54.0); HEMOGLOBIN 9.6 g/dL (13.5-18.0); LYMPHOCYTES % (AUTO) 8.3 % (21.0-51.0); MEAN CORPUSCULAR HEMOGLOBIN 30.9 pg (27.0-34.0); MEAN CORPUSCULAR HGB CONC 33.5 g/dL (33.0-35.0); MEAN CORPUSCULAR VOLUME 92.5 fL (80.0-100.0); MEAN PLATELET VOLUME 7.6 fL (7.4-11.0); MONOCYTES % (AUTO) 8.7 % (0.0-13.0); NEUTROPHILS # (AUTO) 9.7 x10^3/uL (2.2-4.8); NEUTROPHILS % (AUTO) 81.9 % (42.0-75.0); RED BLOOD COUNT 3.09 X10^6/uL (4.7-6.0); WHITE BLOOD COUNT 11.8 X10^3/uL (3.6-10.0)
[2022-01-21 05:12] LABS: ALANINE AMINOTRANSFERASE 13 Units/L (12-78); ALKALINE PHOSPHATASE 140 Units/L (46-116); ASPARTATE AMINO TRANSFERASE 16 Units/L (15-37); BLOOD UREA NITROGEN 6 mg/dL (7-18); CALCIUM 8.4 mg/dL (8.5-10.1); CARBON DIOXIDE 27.9 mmol/L (21-32); CHLORIDE 102 mmol/L (98-107); COR NA(FOR HYPERGLY) 135 mmol/L (136-145); CREATININE 0.52 mg/dL (0.70-1.30); SODIUM 135 mmol/L (136-145); TOTAL PROTEIN 5.6 g/dL (6.4-8.2); eGFR NON BLACK RACES > 60 (>60)
[2022-01-21] MEDS: NEURONTIN CAP 300 MG PO SCH ×3 (05:56→23:02)
[2022-01-21] MEDS: ZANAFLEX PO SCH ×3 (05:56→23:02)
[2022-01-21] MEDS: LR 1,000 ML IV 1,000 ML IV SCH (05:56)
[2022-01-21] MEDS ORDERED: MARCAINE 0.5% ONE (06:50)
[2022-01-21] MEDS ORDERED: HEPARIN SODIUM IN D5W 75,000 UNITS/1,500 ML BAG ONE (06:50)
[2022-01-21] MEDS ORDERED: VERSED ONE (06:52)
[2022-01-21] MEDS ORDERED: FENTANYL VIAL INJ 100 mcg ONE (06:52)
[2022-01-21] MEDS ORDERED: KETAMINE HCL ONE (06:52)
[2022-01-21] MEDS ORDERED: XYLOCAINE 2 % (PLAIN) ONE (06:53)
[2022-01-21] MEDS ORDERED: DIPRIVAN VIAL 20 ML ONE ×3 (06:53→09:48)
[2022-01-21] MEDS ORDERED: HEPARIN SODIUM INJ 5000 UNITS ONE (06:53)
[2022-01-21] MEDS ORDERED: ANCEF VIAL 1 GRAM ONE (07:07)
[2022-01-21] MEDS ORDERED: NORMODYNE INJ 20 MG VIAL ONE (08:30)
[2022-01-21] MEDS ORDERED: NITROGLYCERIN IV PREMIX 50 MG 50 MG/250 ML BAG ONE (08:46)
[2022-01-21] MEDS ORDERED: NS 1,000 ML IV 1,000 ML ONE (09:08)
[2022-01-21] MEDS ORDERED: LR 1,000 ML IV 1,000 ML IV ONE (09:15)
[2022-01-21] MEDS: PULMICORT NEB TX 0.5 MG NEB SCH ×2 (09:28→20:15)
[2022-01-21] MEDS: Atrovent NEB TX 0.02% NEB SCH ×2 (09:28→20:15)
[2022-01-21] MEDS ORDERED: NS 500 ML IV 500 ML IV ONE (09:42)
[2022-01-21] MEDS ORDERED: HEPARIN SODIUM IN D5W 25,000 UNITS/500 ML BAG ONE (09:42)
[2022-01-21] MEDS ORDERED: ACTIVASE CATHFLO ONE (09:44)
[2022-01-21] MEDS ORDERED: ACTIVASE CATHFLO 12 MG in NS 250 ML IV 228 ML INTRACATH ONE (10:06)
[2022-01-21] MEDS: HEPARIN SODIUM IN D5W 25,000 UNITS/500 ML BAG INTRACATH PRN (10:10)
[2022-01-21] MEDS: ACTIVASE CATHFLO 12 MG in NS 250 ML IV 228 ML INTRACATH SCH ×2 (10:10→21:51)
[2022-01-21] MEDS: DILAUDID INJ IVP PRN ×3 (10:36→20:30)
[2022-01-21 10:43] LABS: BASOPHILS # (AUTO) 0.1 X10^3/uL (0.0-0.1); BASOPHILS % (AUTO) 0.9 % (0.2-1.0); EOSINOPHILS % (AUTO) 0.2 % (0.9-2.9); HEMATOCRIT 28.3 % (42.0-54.0); HEMOGLOBIN 9.4 g/dL (13.5-18.0); LYMPHOCYTES # (AUTO) 0.7 X10^3/uL (1.3-2.9); LYMPHOCYTES % (AUTO) 5.3 % (21.0-51.0); MEAN CORPUSCULAR HEMOGLOBIN 30.4 pg (27.0-34.0); MEAN CORPUSCULAR HGB CONC 33.4 g/dL (33.0-35.0); MEAN CORPUSCULAR VOLUME 91.1 fL (80.0-100.0); MEAN PLATELET VOLUME 7.1 fL (7.4-11.0); MONOCYTES # (AUTO) 1.1 x10^3/uL (0.3-0.8); MONOCYTES % (AUTO) 8.5 % (0.0-13.0); NEUTROPHILS # (AUTO) 11.3 x10^3/uL (2.2-4.8); NEUTROPHILS % (AUTO) 85.1 % (42.0-75.0); RED BLOOD COUNT 3.11 X10^6/uL (4.7-6.0); RED CELL DISTRIBUTION WIDTH 15.9 % (11.6-16.5); WHITE BLOOD COUNT 13.2 X10^3/uL (3.6-10.0)
[2022-01-21] MEDS: NexIUM PO SCH (11:13)
[2022-01-21] MEDS: LOPRESSOR INJ 5 MG AMP IVP SCH ×2 (11:13→21:00)
[2022-01-21] MEDS: KEPPRA TAB 500 MG PO SCH (11:13)
[2022-01-21] MEDS: NS 500 ML IV 500 ML IV SCH (11:13)
--- NOTE | 2022-01-21 12:36 | OR.IMMED ---
IMMEDIATE POST-OP NOTE Immediate Post-Op Note Pre-Op Diagnosis: Critical limb threatening ischemia left lower extremity Post-Op Diagnosis: same Procedure: diagnostic arteriogram left lower extremity, balloon angioplasty left anterior artery, angioplasty left peroneal artery, atherectomy and drug-coated balloon angioplasty of left superficial femoral artery and popliteal artery, placement of EKOS thrombolytic catheter in the left posterior tibial artery for thrombolysis with TPA. Description of Procedure: See operative summary Surgeon/Commissary Superintendent: Philip Findings: completely occluded left superficial femoral artery starting above the mid superficial femoral artery stent with reconstitution of the left popliteal artery, proximal patent left anterior tibial artery with distal occlusion, Occlusion of the left tibial peroneal trunk and both the peroneal and posterior tibial arteries with very poor run off into the left foot consistent with significant outflow obstruction. Specimens Removed: plaque Estimated Blood Loss: < 50 cc Complications: No complications but left foot is in severe jeopardy of requiring amputation. Discharge Progress Notes: Return to the ICU on TPA drip, Heparin drip, will consider nitroglycerin drip. Will return to the operating Suite on Monday for repeat arteriogram to see if the leg can be salvaged on the left. Condition: Stable Final Diagnosis: as above
[2022-01-21] MEDS: ATIVAN INJ 2 MG VIAL IVP PRN ×2 (16:36→18:28)
[2022-01-21 16:37] LABS: BASOPHILS # (AUTO) 0.2 X10^3/uL (0.0-0.1); BASOPHILS % (AUTO) 0.9 % (0.2-1.0); HEMATOCRIT 30.6 % (42.0-54.0); LYMPHOCYTES # (AUTO) 0.4 X10^3/uL (1.3-2.9); LYMPHOCYTES % (AUTO) 2.2 % (21.0-51.0); MEAN CORPUSCULAR HEMOGLOBIN 30.6 pg (27.0-34.0); MEAN CORPUSCULAR HGB CONC 32.8 g/dL (33.0-35.0); MEAN CORPUSCULAR VOLUME 93.3 fL (80.0-100.0); MONOCYTES % (AUTO) 5.4 % (0.0-13.0); NEUTROPHILS # (AUTO) 17.6 x10^3/uL (2.2-4.8); NEUTROPHILS % (AUTO) 91.5 % (42.0-75.0); RED BLOOD COUNT 3.28 X10^6/uL (4.7-6.0); RED CELL DISTRIBUTION WIDTH 16.4 % (11.6-16.5); WHITE BLOOD COUNT 19.2 X10^3/uL (3.6-10.0)
[2022-01-21 16:55] LABS: BAND NEUTROPHILS % 5 % (0-10)
[2022-01-21 16:56] LABS: PLATELET MORPHOLOGY COMMENT NORMAL (NORMAL)
[2022-01-21] MEDS: REMERON PO SCH (22:11)
[2022-01-21 22:25] LABS: BASOPHILS # (AUTO) 0.1 X10^3/uL (0.0-0.1); BASOPHILS % (AUTO) 0.4 % (0.2-1.0); HEMATOCRIT 27.9 % (42.0-54.0); HEMOGLOBIN 9.3 g/dL (13.5-18.0); LYMPHOCYTES # (AUTO) 0.7 X10^3/uL (1.3-2.9); LYMPHOCYTES % (AUTO) 3.9 % (21.0-51.0); MEAN CORPUSCULAR HEMOGLOBIN 29.8 pg (27.0-34.0); MEAN CORPUSCULAR HGB CONC 33.2 g/dL (33.0-35.0); MEAN CORPUSCULAR VOLUME 89.9 fL (80.0-100.0); MONOCYTES # (AUTO) 1.4 x10^3/uL (0.3-0.8); MONOCYTES % (AUTO) 8.4 % (0.0-13.0); NEUTROPHILS # (AUTO) 14.4 x10^3/uL (2.2-4.8); NEUTROPHILS % (AUTO) 87.3 % (42.0-75.0); WHITE BLOOD COUNT 16.5 X10^3/uL (3.6-10.0)
[2022-01-21] MEDS: SINGULAIR TAB 10 MG PO SCH (23:02)
--- NOTE | 2022-01-21 23:52 | NOTE.SOAP ---
Soap Note Note for Day of Date of Exam: 01/21/22 Subjective Data Subjective Data: patient status post intervention of the left leg. See operative note. Currently with EKOS catheter of the left leg primarily involving the left posterior tibial artery.left foot remains cool. Objective Data Pulse Rate: 107 Respiratory Rate: 30 Blood Pressure: 142/84 O2 Sat by Pulse Oximetry: 94 Objective Data: as above Cr= 0.52, fibrinogen WNL> Assessment Assessment: Severe ischemia of the left foot Plan Plan: I had a discussion in person with the patient's family at 2:30 p. M. Today including the patient, his and his daughter. The daughter had expressed interest in possible transfer after I told the family that the patient is at significant risk for limb loss. The patient did not want this to occur and wants to be treated here. I let the family discussed this and they unanimously decided to keep him here at this time with his current treatment. Even in the best of circumstances he still carries a significant risk of amputation. They are all satisfied with his current treatment and will notify me if they change their mind. They have my personal cell phone number.
[2022-01-21] MEDS ORDERED: NITROGLYCERIN IV PREMIX 50 MG 50 MG/250 ML BAG IV PRN (23:55)
[2022-01-22] MEDS: ATIVAN INJ 2 MG VIAL IVP PRN ×7 (00:20→22:54)
[2022-01-22] MEDS: NS 500 ML IV 500 ML IV SCH ×2 (02:44→15:10)
[2022-01-22] MEDS: DILAUDID INJ IVP PRN ×5 (04:16→20:09)
[2022-01-22] MEDS ORDERED: NORMODYNE INJ 20 MG VIAL IVP STA (04:22)
[2022-01-22 04:57] LABS: HEMOGLOBIN 9.6 g/dL (13.5-18.0); LYMPHOCYTES # (AUTO) 0.3 X10^3/uL (1.3-2.9); MONOCYTES # (AUTO) 1.3 x10^3/uL (0.3-0.8)
[2022-01-22 05:03] LABS: BASOPHILS # (AUTO) 0.2 X10^3/uL (0.0-0.1); BASOPHILS % (AUTO) 0.9 % (0.2-1.0); HEMATOCRIT 28.6 % (42.0-54.0); LYMPHOCYTES % (AUTO) 1.8 % (21.0-51.0); MEAN CORPUSCULAR HEMOGLOBIN 30.2 pg (27.0-34.0); MEAN CORPUSCULAR HGB CONC 33.4 g/dL (33.0-35.0); MEAN CORPUSCULAR VOLUME 90.6 fL (80.0-100.0); MEAN PLATELET VOLUME 7.6 fL (7.4-11.0); MONOCYTES % (AUTO) 6.9 % (0.0-13.0); NEUTROPHILS # (AUTO) 16.6 x10^3/uL (2.2-4.8); NEUTROPHILS % (AUTO) 90.4 % (42.0-75.0); RED BLOOD COUNT 3.16 X10^6/uL (4.7-6.0); RED CELL DISTRIBUTION WIDTH 15.9 % (11.6-16.5); WHITE BLOOD COUNT 18.4 X10^3/uL (3.6-10.0)
[2022-01-22 05:55] LABS: PLATELET MORPHOLOGY COMMENT NORMAL (NORMAL)
[2022-01-22] MEDS: NEURONTIN CAP 300 MG PO SCH ×3 (06:33→22:54)
[2022-01-22] MEDS: ZANAFLEX PO SCH ×3 (06:33→22:54)
[2022-01-22] MEDS: Atrovent NEB TX 0.02% NEB SCH ×2 (08:35→21:46)
[2022-01-22] MEDS: PULMICORT NEB TX 0.5 MG NEB SCH ×2 (08:35→21:46)
[2022-01-22] MEDS: KEPPRA TAB 500 MG PO SCH (09:05)
[2022-01-22] MEDS: LOPRESSOR INJ 5 MG AMP IVP SCH ×2 (09:05→20:09)
[2022-01-22] MEDS: NexIUM PO SCH (09:05)
[2022-01-22 10:30] LABS: BASOPHILS # (AUTO) 0.1 X10^3/uL (0.0-0.1); BASOPHILS % (AUTO) 0.7 % (0.2-1.0); EOSINOPHILS % (AUTO) 0.1 % (0.9-2.9); HEMATOCRIT 29.9 % (42.0-54.0); LYMPHOCYTES # (AUTO) 0.4 X10^3/uL (1.3-2.9); LYMPHOCYTES % (AUTO) 2.5 % (21.0-51.0); MEAN CORPUSCULAR HEMOGLOBIN 30.3 pg (27.0-34.0); MEAN CORPUSCULAR HGB CONC 33.3 g/dL (33.0-35.0); MEAN CORPUSCULAR VOLUME 91.1 fL (80.0-100.0); MONOCYTES # (AUTO) 1.5 x10^3/uL (0.3-0.8); MONOCYTES % (AUTO) 8.6 % (0.0-13.0); NEUTROPHILS # (AUTO) 15.3 x10^3/uL (2.2-4.8); NEUTROPHILS % (AUTO) 88.1 % (42.0-75.0); RED BLOOD COUNT 3.28 X10^6/uL (4.7-6.0); WHITE BLOOD COUNT 17.3 X10^3/uL (3.6-10.0)
[2022-01-22] MEDS: ACTIVASE CATHFLO 12 MG in NS 250 ML IV 228 ML INTRACATH SCH ×2 (10:45→22:54)
--- NOTE | 2022-01-22 15:58 | DR.OPNOTE ---
OP NOTE Pre-Op Diagnosis: Critical limb threatening ischemia left foot Post-Op Diagnosis: same Procedure Date Date Of Procedure: 01/21/22 Procedure: PROCEDURE :Diagnostic arteriogram left lower extremity ,angioplasty left anterior tibial artery, angioplasty left peroneal artery, atherectomy and drug-coated balloon angioplasty left superficial femoral and popliteal artery, place left posterior tibial artery EKOS catheter for thrombolysis. NARRATIVE: The patient was taken to the operative suite and placed in the Supine position. The right groin and the entire left leg were prepped and draped in sterile fashion. The patient was given IV sedation which was supervised by myself. Time out for the procedure obtained .Ultrasound was used to identify the right common femoral artery and the skin overlying it infiltrated was 0. 5% Marcaine . Ultrasound used to guide puncture of the right common femoral artery and a 0. 012 inch guidewire placed without difficulty. Incision made over the guide wire at the skin edge and a micro sheath placed over the guide wire into the right common femoral artery . The small guidewire exchanged for a 0. 035 inch Advantage glidewire and the micro sheath exchanged for a 5 Fr sheath. RIM catheter placed over the guide wire and the RIM catheter used to guide the guide wire down the left side showing normal iliac artery. The common femoral artery was normal and the superficial femoral artery was occ luded approximately 10 centimeters from the profunda and remained occluded along the length of the superficial femoral artery with reconstitution of the popliteal artery. Trailblazer catheter placed over the guide wire and used to place the guide wire all the way down to the the popliteal artery. Guide wire was easily placed into the left anterior tibial arterty . The patient had been given 5,000 units of intravenous Heparin. The small sheath in the right groin exchanged for a 7 [place] destination sheath which was parked in the left common femoral artery 0. 035 inch guide wire exchanged for a 0. 014 inch guide wire and it was placed across the distal obstruction of the anterior tibial artery into the left foot. Over the guide wire I placed a 2. 5 mm x 220 mm [place] angioplasty balloon which was used to balloon open the entire left anterior tibial artery . The patency of this was confirmed by post procedure arteriogram . The guide wire pulled back into the popliteal artery and used to go down the entire peroneal artery and opened it with the 2. 5 mm by 220 mm angioplasty balloon. I could not get a wire down the left posterior tibial artery at this time . I exchanged the 0. 014 inch guidewire for a 0. 014 inch Spider basket and wire which was deployed in the popliteal artery . Over the 0. 014 inch wire I placed the Jet stream atherectomy device and used it to perform atherectomy of the entire middle and distal left superficial femoral artery and then ballooned open the popliteal artery and distal superficial femoral artery with a 6 mm by 200 mm [employer] drug-coated balloon .It should be noted there was a stent in the mid portion of the left superficial femoral artery which was traversed easily with the Jet stream device. Once I had used the six mm x [address] then [address] a 6 mm by 150 mm drug coated balloon in the proximal superficial femoral artery . Both of the drug coated balloons were held inflated for 3 minutes and then deflated. Post-procedure arteriogram showed the superficial femoral artery and popliteal arteries were patent but there was slow flow. Repeat arteriogram distally showed very poor flow in the left foot compared to previous arteriogram at the first intervention . I felt there was significant outflow obstruction in the left foot. I then placed a 0.035 inch Trailblazer and a 0. 035 Advantage glidewire and was able to get the wire down the posterior tibial artery all the way to the foot. Over the guidewire I placed a 50 cm Eco Sonic thrombolytic catheter, removed the guide wire and placed the inner core. Patient was bolused with 3 mg of IV TPA through the catheter. Catheter was used to infuse TPA at 1 mg per hour with coolant at 35 CC's per hour and a Heparin drip through the destination sheath at 500 units per hour. Dressing applied to the right groin. Patient taken back to the ICU where he will undergo continuous thrombolysis for 48 to 72 hours in hopes that we can clear some of the clot out of the left foot. If this does not occur there is a high likelihood he will require amputation. I have explained this to his family. Type of Anesthesia: Local (0.5 % Marcaine ) Anesthesia Comment: plus MAC Findings: Occluded distal left anterior tibial artery , complete occlusion left peroneal artery, complete occlusion Left Posterior tibial artery, complete occlusion left tibial - peroneal trunk, complete occlusion left mid and distal superficial femoral artery Specimen/Pathology: plaque Type of Fluids Used:: Lactated Ringers EBL: < 25 cc Complications:: none Needle/Sponge Count:: correct Disposition/Condition: Pt. tolerated procedure without difficulty. Returned to the ICU .
[2022-01-22] MEDS: NORMODYNE INJ 20 MG VIAL IVP PRN (16:02)
[2022-01-22 16:23] LABS: BASOPHILS % (AUTO) 0.2 % (0.2-1.0); HEMOGLOBIN 9.8 g/dL (13.5-18.0)
[2022-01-22 16:26] LABS: HEMATOCRIT 29.3 % (42.0-54.0); LYMPHOCYTES # (AUTO) 0.3 X10^3/uL (1.3-2.9); LYMPHOCYTES % (AUTO) 1.8 % (21.0-51.0); MEAN CORPUSCULAR HEMOGLOBIN 30.3 pg (27.0-34.0); MEAN CORPUSCULAR HGB CONC 33.4 g/dL (33.0-35.0); MEAN CORPUSCULAR VOLUME 90.7 fL (80.0-100.0); MEAN PLATELET VOLUME 7.1 fL (7.4-11.0); MONOCYTES # (AUTO) 1.6 x10^3/uL (0.3-0.8); MONOCYTES % (AUTO) 9.6 % (0.0-13.0); NEUTROPHILS # (AUTO) 14.5 x10^3/uL (2.2-4.8); NEUTROPHILS % (AUTO) 88.4 % (42.0-75.0); RED BLOOD COUNT 3.23 X10^6/uL (4.7-6.0); RED CELL DISTRIBUTION WIDTH 15.9 % (11.6-16.5); WHITE BLOOD COUNT 16.4 X10^3/uL (3.6-10.0)
--- NOTE | 2022-01-22 20:17 | NOTE.SOAP ---
Soap Note Note for Day of Date of Exam: 01/22/22 Subjective Data Subjective Data: S/p arteriogram left leg with balloon angioplasty of peroneal and anterior tibial arteries . Artherectomy and drug coated balloon angioplasty of left SFA and placement of EKOS thrombolytic catheter in the left posterior tibial artery with administration of TPA to try and thrombolyse the left foot.Reamins confused and tachycardic.Has denied alcohol use but clinical situation consistetnt with ETOH withdrawal. . Treat with IV Ativan and IV Metoprolol. Left foot still cool with beginning blistering . Remains on TPA drip and IV NTG. Objective Data Pulse Rate: 137 Respiratory Rate: 28 Blood Pressure: 135/94 O2 Sat by Pulse Oximetry: 98 Objective Data: Left foot cool with beginning blistering , Left leg warm to the ankle .No doppler signal at the left ankle. Confused . Requires restainsts. Assessment Assessment: Ischemic left foot, Probable alcohol withdrawal. Plan Plan: Continue TPA and NTG drips. IV Ativan and IV propranolol , banana bag
[2022-01-22 22:23] LABS: BASOPHILS # (AUTO) 0.2 X10^3/uL (0.0-0.1); BASOPHILS % (AUTO) 0.7 % (0.2-1.0); HEMATOCRIT 29.6 % (42.0-54.0); HEMOGLOBIN 9.8 g/dL (13.5-18.0); LYMPHOCYTES # (AUTO) 0.4 X10^3/uL (1.3-2.9); LYMPHOCYTES % (AUTO) 1.6 % (21.0-51.0); MEAN CORPUSCULAR HGB CONC 33.1 g/dL (33.0-35.0); MEAN CORPUSCULAR VOLUME 90.7 fL (80.0-100.0); MEAN PLATELET VOLUME 6.9 fL (7.4-11.0); MONOCYTES # (AUTO) 2.1 x10^3/uL (0.3-0.8); MONOCYTES % (AUTO) 9.1 % (0.0-13.0); NEUTROPHILS # (AUTO) 20.2 x10^3/uL (2.2-4.8); NEUTROPHILS % (AUTO) 88.6 % (42.0-75.0); RED BLOOD COUNT 3.27 X10^6/uL (4.7-6.0); RED CELL DISTRIBUTION WIDTH 15.7 % (11.6-16.5); WHITE BLOOD COUNT 22.9 X10^3/uL (3.6-10.0)
[2022-01-22] MEDS: REMERON PO SCH (22:42)
[2022-01-22] MEDS: SINGULAIR TAB 10 MG PO SCH (22:42)
[2022-01-22 23:29] LABS: PLATELET MORPHOLOGY COMMENT NORMAL (NORMAL)
[2022-01-23] MEDS: DILAUDID INJ IVP PRN ×4 (00:32→13:51)
[2022-01-23 02:43] LABS: ABG BASE EXCESS 2.8 mmol/L (-2.0-2.0); ABG HCO3 29.7 mmol/L (22-26)
[2022-01-23 02:44] LABS: ABG ALLEN TEST POS
--- NOTE | 2022-01-23 02:57 | RAD ---
PROCEDURE: Chest X-ray 1 View .HISTORY: Abnormal auscultation.TECHNIQUE: AP view .COMPARISON: 01/20/2022.TECHNICAL QUALITY: Satisfactory .FINDINGS:Normal size heart.Normal central vascularity.Right upper lobe pneumonia near the minor fissure. Increased perihilar markings left hilum may represent pneumonia. Increased density left lower lobe behind the heart suspicious for pneumonia or atelectasis. No pleural fluid or pneumothorax.IMPRESSION:Bilateral pneumonia that is appeared since previous study.Electronically signed by: Anil Soto (Jan 23, 2022 02:56:43)
[2022-01-23] MEDS: ATIVAN INJ 2 MG VIAL IVP PRN ×3 (03:17→15:43)
[2022-01-23 05:00] LABS: BASOPHILS # (AUTO) 0.2 X10^3/uL (0.0-0.1); BASOPHILS % (AUTO) 0.9 % (0.2-1.0); HEMATOCRIT 29.6 % (42.0-54.0); HEMOGLOBIN 9.7 g/dL (13.5-18.0); LYMPHOCYTES # (AUTO) 0.2 X10^3/uL (1.3-2.9); MEAN CORPUSCULAR HEMOGLOBIN 30.2 pg (27.0-34.0); MEAN CORPUSCULAR HGB CONC 32.7 g/dL (33.0-35.0); MEAN CORPUSCULAR VOLUME 92.1 fL (80.0-100.0); MEAN PLATELET VOLUME 7.6 fL (7.4-11.0); MONOCYTES # (AUTO) 1.8 x10^3/uL (0.3-0.8); MONOCYTES % (AUTO) 8.2 % (0.0-13.0); NEUTROPHILS # (AUTO) 19.8 x10^3/uL (2.2-4.8); NEUTROPHILS % (AUTO) 89.9 % (42.0-75.0); RED BLOOD COUNT 3.22 X10^6/uL (4.7-6.0); RED CELL DISTRIBUTION WIDTH 15.4 % (11.6-16.5)
[2022-01-23] MEDS: NEURONTIN CAP 300 MG PO SCH ×2 (05:06→14:19)
[2022-01-23] MEDS: ZANAFLEX PO SCH ×2 (05:06→14:19)
[2022-01-23] MEDS ORDERED: NS 500 ML IV 1,000 ML IV ONE (05:15)
[2022-01-23 05:18] LABS: PLATELET MORPHOLOGY COMMENT NORMAL (NORMAL)
[2022-01-23] MEDS: NS 500 ML IV 500 ML IV SCH (05:19)
[2022-01-23] MEDS: HEPARIN SODIUM IN D5W 25,000 UNITS/500 ML BAG INTRACATH PRN (05:19)
[2022-01-23] MEDS: ZOSYN VIAL 3.375 GRAMS 3.375 G in NS 100 ML IV 100 ML IV SCH ×2 (08:42→14:21)
[2022-01-23] MEDS: NexIUM PO SCH (08:42)
[2022-01-23] MEDS: KEPPRA TAB 500 MG PO SCH (08:42)
[2022-01-23 08:56] LABS: ALANINE AMINOTRANSFERASE 24 Units/L (12-78); ALBUMIN 1.7 g/dL (3.4-5.0); ALKALINE PHOSPHATASE 108 Units/L (46-116); ASPARTATE AMINO TRANSFERASE 66 Units/L (15-37); BLOOD UREA NITROGEN 15 mg/dL (7-18); CALCIUM 7.6 mg/dL (8.5-10.1); CARBON DIOXIDE 25.4 mmol/L (21-32); CHLORIDE 101 mmol/L (98-107); COR CA(FOR HYPOALB) 9.4 mg/dL (8.5-10.1); COR NA(FOR HYPERGLY) 136 mmol/L (136-145); CREATININE 0.48 mg/dL (0.70-1.30); SODIUM 136 mmol/L (136-145); TOTAL PROTEIN 5.3 g/dL (6.4-8.2); eGFR NON BLACK RACES > 60 (>60)
[2022-01-23 08:58] LABS: LACTIC ACID 0.7 mmol/L (0.4-2.0)
[2022-01-23] MEDS ORDERED: LR 1,000 ML IV 1,000 ML IV SCH (09:00)
[2022-01-23] MEDS: Atrovent NEB TX 0.02% NEB SCH (09:15)
[2022-01-23] MEDS: PULMICORT NEB TX 0.5 MG NEB SCH (09:15)
[2022-01-23] MEDS: LOPRESSOR INJ 5 MG AMP IVP SCH (09:24)
[2022-01-23] MEDS ORDERED: ROCEPHIN VIAL 1 GRAM 1 G in NS 100 ML IV 100 ML IV SCH (09:44)
[2022-01-23 10:34] LABS: LYMPHOCYTES # (AUTO) 0.3 X10^3/uL (1.3-2.9); MEAN PLATELET VOLUME 7.4 fL (7.4-11.0)
[2022-01-23 10:44] LABS: BASOPHILS # (AUTO) 0.1 X10^3/uL (0.0-0.1); BASOPHILS % (AUTO) 0.2 % (0.2-1.0); HEMATOCRIT 29.2 % (42.0-54.0); HEMOGLOBIN 9.7 g/dL (13.5-18.0); LYMPHOCYTES % (AUTO) 1.1 % (21.0-51.0); MEAN CORPUSCULAR HEMOGLOBIN 30.3 pg (27.0-34.0); MEAN CORPUSCULAR HGB CONC 33.1 g/dL (33.0-35.0); MEAN CORPUSCULAR VOLUME 91.4 fL (80.0-100.0); MONOCYTES # (AUTO) 2.1 x10^3/uL (0.3-0.8); MONOCYTES % (AUTO) 8.4 % (0.0-13.0); NEUTROPHILS # (AUTO) 22.8 x10^3/uL (2.2-4.8); NEUTROPHILS % (AUTO) 90.3 % (42.0-75.0); RED CELL DISTRIBUTION WIDTH 15.3 % (11.6-16.5); WHITE BLOOD COUNT 25.3 X10^3/uL (3.6-10.0)
[2022-01-23] MEDS: NORMODYNE INJ 20 MG VIAL IVP PRN (10:56)
[2022-01-23] MEDS: ACTIVASE CATHFLO 12 MG in NS 250 ML IV 228 ML INTRACATH SCH (10:56)
[2022-01-23 11:32] LABS: PLATELET MORPHOLOGY COMMENT NORMAL (NORMAL)
[2022-01-23] MEDS ORDERED: KETAMINE 50 MG/5 ML-NACL SYRNG ONE ×2 (12:00→13:34)
[2022-01-23] MEDS ORDERED: NS 500 ML IV 500 ML IV ONE (12:51)
[2022-01-23 13:20] LABS: ABG BASE EXCESS 3.3 mmol/L (-2.0-2.0); ABG HCO3 29.5 mmol/L (22-26)
[2022-01-23 13:22] LABS: ABG ALLEN TEST POS
[2022-01-23] MEDS ORDERED: DIPRIVAN VIAL 20 ML ONE ×2 (15:02→15:59)
[2022-01-23] MEDS ORDERED: VERSED ONE (15:03)
[2022-01-23] MEDS ORDERED: FENTANYL VIAL INJ 100 mcg ONE (15:03)
--- NOTE | 2022-01-23 15:25 | NOTE.SOAP ---
Soap Note Note for Day of Date of Exam: 01/23/22 Subjective Data Subjective Data: See previous notes. Patient status post second intervention of the left leg for critical limb ischemia. Status post athrectomy and balloon angioplasty of the left superficial femoral and popliteal arteries with angioplasty of the left anterior tibial and left peroneal arteries Placement of EKOS catheter in the left posterior tibia artery to infuse the left foot with significant microvascular disease and poor outflow. The left foot has remained cool and now has some blistering but is now warm all the way to the ankle without a doppler signal at the ankle. In addition he has remained confused requiring IV sedation with Ativan and IV metoprolol for tachycardia presumed to be alcohol withdrawal. He had decreasing O2 saturation early this am and chest x-ray consistent with bilateral pneumonia. He had been on BiPAP and ABG is improved at 7.37/PCO2=51/P02 =121 on 50 % BIPAP. Currently on Zosyn and Rocephin . The family had requested to transfer the patient to [place] or [place]. I called the [facility] system in [place] and they had no beds in [place] and suggested I call [facility] in [place]. Initially spoke with Doctor Cantrell at [facility] in [place] who said he might have a bed available this afternoon however follow-up calls siad they would not reevaluate until 7 p. M. nahed. Therefore I called [facility] in [place] and the patient has been accepted by Dr. Huggins , health promotion specialist . He requested that the patient be intubated to protect the airway during transfer and that will be carried out. Also spoke with the vascular surgeon mission analyst at [facility], Dr. Duong .and I explained that the left foot is still in [place]opardy. Currently there is a thrombolytic catheter in place and infusing TPA into the left foot via the left posterior tibial artery . He requested that I remove the catheter as well as the destination sheath and place an Angio seal to control the bleeding from the puncture site of the right groin prior to transportation. That will also be carried out. Objective Data Pulse Rate: 123 Respiratory Rate: 33 Blood Pressure: 143/88 O2 Sat by Pulse Oximetry: 100 Objective Data: Confused but not moving around much now. Moved all extremities . No lateralizing neurological signs . Left foot cool . left leg warm Blistering left foot Assessment Assessment: Critical left leg ischemia, confusion, pneumonia Plan Plan: Will remove right groin destination sheath and the left leg EKOS catheter , place Angio seal device in the puncture of the right common femoral artery and intubate patient to ready them for transfer to [place].
[2022-01-23] MEDS ORDERED: PEPCID 20 MG VIAL ONE (15:59)
[2022-01-23] MEDS ORDERED: ROBINUL ONE (15:59)
[2022-01-23] MEDS ORDERED: ZOFRAN INJ 4 MG VIAL ONE (15:59)
[2022-01-23] MEDS ORDERED: LR 1,000 ML IV 1,000 ML IV ONE (16:12)
[2022-01-23] MEDS ORDERED: HEPARIN SODIUM IN D5W 25,000 UNITS/500 ML BAG ONE (16:12)
[2022-01-23] MEDS ORDERED: VERSED IV PREMIX 100 MG/100 ML IV.SOLN IV PRN (16:15)
[2022-01-23] MEDS ORDERED: XYLOCAINE 2 % (PLAIN) ONE (16:22)
[2022-01-23] MEDS: VERSED ONE ×2 (16:30→17:12)
[2022-01-23] MEDS ORDERED: NS 100 ML IV 100 ML ONE ×2 (16:31→17:12)
[2022-01-23] MEDS ORDERED: BETADINE SOLN ONE (16:36)
[2022-01-23] MEDS ORDERED: NEO-SYNEPHRINE INJ ONE (16:45)
[2022-01-23] MEDS ORDERED: DECADRON INJ ONE (16:46)
[2022-01-23] MEDS ORDERED: LACRI-LUBE S.O.P. ONE (16:59)
--- NOTE | 2022-01-23 17:38 | W.DIS.FURT ---
Summary of Discharge Discharge Summary of Date Date of Exam: 01/23/22 Admission Date Date of Admission: 01/20/22 Admission Diagnosis Hospital Course: 66 year old male with significant history of tobacco abuse and rest pain of the left foot with gangrenous left great toe.He was seen in my office in mid- December. On January 10 he was taken to the operating Suite where you underwent angiography showing normal iliac arteries with severe disease of the mid left superficial femoral artery with occlusion of both the distal anterior tibial artery and distal posterior tibial artery . At that time he underwent angioplasty of the anterior tibial and posterior tibial arteries as well as atherectomy and drug-coated balloon angioplasty and Drug coated stenting of the left superficial femoral artery. He was discharged on Eliquis 2. 5 mg bid and aspirin in addition to his usual medications. He continued to smoke heavily and was seen in follow up in my office on January 18 complaining of pain of the left foot . Repeat CT angiogram show diminutive flow through the entire left leg. At that time there were no beds for him to be admitted. 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 I performed angioplasty of the left anterior tibial artery and the peroneal artery with atherectomy and drug-coated balloon angioplasty of the left superficial femoral artery. Follow- up arteriogram showed very slow flow of the left leg consistent with Outlet obstruction. Arteriogram showed poor flow into his left foot which was different from the arteriogram carried out on the 10 of January. Fot this reason a thrombolytic EKOS catheter was placed down the left posterior tibial artery and he was started on TPA .Post procedure he had increasing confusion and tachycardia consistent with alcohol withdrawal. We had planned to give him TPA over the weekend and return on Monday to reassess his left leg with arteriography. His oxygen saturatione began to fall on the morning of Monday the 23 of January and repeat chest x-ray showed evidence of bilateral pneumonia. His foot remained cool with Doppler flow signal identified only to the left popliteal artery. At the family's request I tried to transfer him to [facility] in [place] but they had no beds available. They suggested [facility] in [place] and initially Dr. Cantrell, building specialist said a bed might be available on the afternoon of Monday the 23 of January. Follow up telephone calls revealed they would not be evaluating until 7 p. M. therefore I call [facility] in [place] and Dr. Huggins , building specialist, has accepted him as a patient transfer. He asked for the patient be intubated to protect his Airway during transport. That has been carried out. I also discussed the patient care with the vascular surgeon interventional tech at [facility], Dr. Duong ,who recommended that I remove the thrombolytic catheter from the left leg and the destination sheath from the right femoral artery and place an angio seal device. That has been done. Patience remains hemodynamically stable at this time . White blood cell [place] continued to [place] [id number]. He is on zosyn 3. 375 mg IV q 6 hours and Rocephin 1 g 24 hours. Hs metabolic profile is within normal l imits. HIs urine output has been trending downward but is between 20 andf 30 cc per hour . Vital Signs: Vital Signs (72 hours) 01/20/22 18:00 01/20/22 18:01 01/20/22 18:30 Temperature Pulse Rate 133 H 132 H 157 H Respiratory Rate 26 H 26 H 21 Blood Pressure 140/89 154/106 O2 Sat by Pulse Oximetry 97 97 92 L 01/20/22 19:06 01/20/22 19:30 01/20/22 20:00 Temperature 98.2 F Pulse Rate 135 H 126 H 126 H Respiratory Rate 16 21 Blood Pressure 141/82 159/70 O2 Sat by Pulse Oximetry 98 98 01/20/22 20:30 01/20/22 20:57 01/20/22 21:00 Temperature Pulse Rate 118 H 110 H Respiratory Rate 17 20 19 Blood Pressure 137/81 O2 Sat by Pulse Oximetry 96 97 01/20/22 21:27 01/20/22 21:30 01/20/22 22:00 Temperature Pulse Rate 168 H 127 H Respiratory Rate 15 32 H 18 Blood Pressure 139/84 O2 Sat by Pulse Oximetry 95 95 01/20/22 22:30 01/20/22 23:00 01/20/22 23:30 Temperature Pulse Rate 123 H 115 H 117 H Respiratory Rate 16 15 20 Blood Pressure 129/81 O2 Sat by Pulse Oximetry 94 L 95 96 01/20/22 23:59 01/21/22 00:00 01/21/22 00:20 Temperature 98.3 F Pulse Rate 121 H 120 H Respiratory Rate 19 20 Blood Pressure 135/81 135/81 O2 Sat by Pulse Oximetry 95 95 01/21/22 00:30 01/21/22 00:45 01/21/22 01:00 Temperature Pulse Rate 101 H 101 H 105 H Respiratory Rate 19 20 21 Blood Pressure 143/82 140/85 145/86 O2 Sat by Pulse Oximetry 95 95 94 L 01/21/22 01:15 01/21/22 01:30 01/21/22 01:45 Temperature Pulse Rate 101 H 102 H 105 H Respiratory Rate 18 19 22 Blood Pressure 146/88 127/75 128/82 O2 Sat by Pulse Oximetry 95 96 96 01/21/22 02:00 01/21/22 02:15 01/21/22 02:30 Temperature Pulse Rate 107 H 106 H 120 H Respiratory Rate 18 20 25 H Blood Pressure 149/89 145/88 161/95 O2 Sat by Pulse Oximetry 96 96 94 L 01/21/22 02:46 01/21/22 03:00 01/21/22 03:15 Temperature Pulse Rate 117 H 111 H 107 H Respiratory Rate 28 H 19 19 Blood Pressure 154/89 153/96 155/96 O2 Sat by Pulse Oximetry 96 96 95 01/21/22 03:30 01/21/22 03:45 01/21/22 04:00 Temperature 97.4 F L Pulse Rate 108 H 107 H 108 H Respiratory Rate 19 17 18 Blood Pressure 149/89 153/91 152/93 O2 Sat by Pulse Oximetry 94 L 95 96 01/21/22 04:15 01/21/22 04:30 01/21/22 05:00 Temperature Pulse Rate 112 H 112 H 108 H Respiratory Rate 19 18 15 Blood Pressure 154/93 155/93 O2 Sat by Pulse Oximetry 96 95 96 01/21/22 05:30 01/21/22 06:00 01/21/22 06:30 Temperature Pulse Rate 107 H 108 H 113 H Respiratory Rate 18 15 23 Blood Pressure 153/96 O2 Sat by Pulse Oximetry 95 96 97 01/21/22 07:11 01/21/22 10:17 03/04/22 10:18 Temperature 98.0 F 98.3 F Pulse Rate 111 H 110 H 109 H Respiratory Rate 18 Blood Pressure 158/97 171/94 O2 Sat by Pulse Oximetry 95 98 98 01/21/22 10:30 01/21/22 10:36 01/21/22 10:45 Temperature 98.4 F 98.3 F Pulse Rate 105 H 108 H Respiratory Rate 24 22 24 Blood Pressure 156/104 164/100 O2 Sat by Pulse Oximetry 99 98 01/21/22 11:00 01/21/22 11:06 01/21/22 11:13 Temperature 98.3 F Pulse Rate 108 H Respiratory Rate 20 22 Blood Pressure 170/113 170/111 O2 Sat by Pulse Oximetry 99 01/21/22 11:15 01/21/22 11:30 01/21/22 11:31 Temperature 98.0 F Pulse Rate 109 H 106 H 105 H Respiratory Rate 27 H 22 29 H Blood Pressure 165/110 167/111 O2 Sat by Pulse Oximetry 100 98 97 01/21/22 12:00 01/21/22 12:30 01/21/22 12:59 Temperature 97.6 F Pulse Rate 105 H 109 H 107 H Respiratory Rate 21 39 H 30 H Blood Pressure 168/101 153/98 O2 Sat by Pulse Oximetry 98 97 98 01/21/22 13:00 01/21/22 13:30 01/21/22 14:00 Temperature 98.1 F Pulse Rate 106 H 108 H 109 H Respiratory Rate 27 H 38 H 30 H Blood Pressure 147/89 157/98 O2 Sat by Pulse Oximetry 97 97 97 01/21/22 14:20 01/21/22 14:30 01/21/22 14:50 Temperature Pulse Rate 110 H Respiratory Rate 22 37 H 22 Blood Pressure O2 Sat by Pulse Oximetry 95 01/21/22 15:00 01/21/22 15:30 01/21/22 16:00 Temperature Pulse Rate 114 H 115 H 110 H Respiratory Rate 28 H 21 24 Blood Pressure 144/86 147/91 O2 Sat by Pulse Oximetry 96 93 L 97 01/21/22 16:30 01/21/22 17:00 01/21/22 18:00 Temperature Pulse Rate 110 H 104 H 107 H Respiratory Rate 18 20 16 Blood Pressure 124/76 146/86 O2 Sat by Pulse Oximetry 99 100 100 01/21/22 19:00 01/21/22 20:00 01/21/22 20:15 Temperature 98.5 F Pulse Rate 120 H 119 H 119 H Respiratory Rate 24 23 Blood Pressure 156/90 152/96 O2 Sat by Pulse Oximetry 96 98 100 01/21/22 20:30 01/21/22 21:00 01/21/22 22:00 Temperature Pulse Rate 118 H 107 H Respiratory Rate 23 23 30 H Blood Pressure 140/83 142/84 O2 Sat by Pulse Oximetry 93 L 94 L 01/21/22 23:00 01/21/22 23:52 01/22/22 00:00 Temperature Pulse Rate 111 H 107 H 124 H Respiratory Rate 49 H 30 H 40 H Blood Pressure 140/86 142/84 O2 Sat by Pulse Oximetry 97 94 L 95 01/22/22 00:11 01/22/22 00:13 01/22/22 01:00 Temperature Pulse Rate 126 H 123 H 141 H Respiratory Rate 31 H 32 H 36 H Blood Pressure 164/100 158/98 163/100 O2 Sat by Pulse Oximetry 81 L 01/22/22 01:09 01/22/22 01:10 01/22/22 01:18 Temperature Pulse Rate 128 H 128 H 127 H Respiratory Rate 36 H 38 H 37 H Blood Pressure 163/108 163/105 162/97 O2 Sat by Pulse Oximetry 99 99 99 01/22/22 01:30 01/22/22 01:46 01/22/22 02:00 Temperature Pulse Rate 126 H 127 H 125 H Respiratory Rate 31 H 33 H 42 H Blood Pressure 171/85 172/112 148/89 O2 Sat by Pulse Oximetry 98 99 98 01/22/22 02:15 01/22/22 02:30 01/22/22 02:45 Temperature Pulse Rate 124 H 126 H 126 H Respiratory Rate 37 H 37 H 37 H Blood Pressure 141/88 146/93 152/97 O2 Sat by Pulse Oximetry 98 97 99 01/22/22 03:00 01/22/22 03:03 01/22/22 03:15 Temperature Pulse Rate 129 H 129 H 126 H Respiratory Rate 38 H 29 H 39 H Blood Pressure 144/98 137/94 O2 Sat by Pulse Oximetry 99 100 100 01/22/22 03:30 01/22/22 03:45 01/22/22 04:00 Temperature Pulse Rate 123 H 131 H Respiratory Rate 32 H 39 H Blood Pressure 147/97 154/91 153/94 O2 Sat by Pulse Oximetry 100 99 01/22/22 04:15 01/22/22 04:16 01/22/22 04:30 Temperature Pulse Rate 125 H 132 H Respiratory Rate 35 H 23 27 H Blood Pressure 158/97 152/91 O2 Sat by Pulse Oximetry 98 98 01/22/22 04:45 01/22/22 04:46 01/22/22 05:00 Temperature Pulse Rate 134 H 117 H Respiratory Rate 28 H 22 28 H Blood Pressure 145/95 146/93 O2 Sat by Pulse Oximetry 96 98 01/22/22 05:15 01/22/22 05:30 01/22/22 05:45 Temperature Pulse Rate 119 H 121 H 120 H Respiratory Rate 29 H 27 H 28 H Blood Pressure 152/95 153/96 147/95 O2 Sat by Pulse Oximetry 98 96 98 01/22/22 06:00 01/22/22 06:15 01/22/22 06:30 Temperature Pulse Rate 120 H 121 H Respiratory Rate 31 H 28 H Blood Pressure 154/96 148/94 153/98 O2 Sat by Pulse Oximetry 99 99 01/22/22 06:45 01/22/22 07:00 01/22/22 07:08 Temperature Pulse Rate 123 H 123 H 122 H Respiratory Rate 30 H 29 H 30 H Blood Pressure 142/90 148/100 O2 Sat by Pulse Oximetry 100 100 99 01/22/22 07:14 01/22/22 07:15 01/22/22 07:30 Temperature Pulse Rate 122 H 122 H Respiratory Rate 33 H 33 H Blood Pressure 152/95 148/95 149/101 O2 Sat by Pulse Oximetry 98 99 01/22/22 07:32 01/22/22 08:00 01/22/22 08:25 Temperature Pulse Rate 121 H 120 H Respiratory Rate 34 H 35 H 23 Blood Pressure 150/89 150/91 O2 Sat by Pulse Oximetry 99 99 01/22/22 08:30 01/22/22 08:35 01/22/22 08:55 Temperature Pulse Rate 124 H 125 H Respiratory Rate 28 H 22 Blood Pressure 149/92 O2 Sat by Pulse Oximetry 95 98 01/22/22 09:00 01/22/22 09:05 01/22/22 09:30 Temperature Pulse Rate 125 H 109 H Respiratory Rate 26 H 26 H Blood Pressure 153/87 153/81 148/95 O2 Sat by Pulse Oximetry 100 97 01/22/22 10:00 01/22/22 10:30 01/22/22 11:00 Temperature Pulse Rate 113 H 120 H 119 H Respiratory Rate 30 H 30 H 28 H Blood Pressure 147/91 151/91 149/94 O2 Sat by Pulse Oximetry 98 93 L 100 01/22/22 11:30 01/22/22 12:00 01/22/22 12:18 Temperature Pulse Rate 121 H 123 H Respiratory Rate 32 H 33 H 26 H Blood Pressure 145/97 153/95 O2 Sat by Pulse Oximetry 100 100 01/22/22 12:30 01/22/22 12:48 01/22/22 13:00 Temperature Pulse Rate 125 H 128 H Respiratory Rate 27 H 22 34 H Blood Pressure 156/94 161/98 O2 Sat by Pulse Oximetry 99 100 01/22/22 13:30 01/22/22 14:00 01/22/22 14:30 Temperature Pulse Rate 125 H 129 H Respiratory Rate 30 H 36 H Blood Pressure 156/95 154/93 143/93 O2 Sat by Pulse Oximetry 91 L 98 01/22/22 14:53 01/22/22 14:55 01/22/22 15:00 Temperature Pulse Rate 137 H 136 H 137 H Respiratory Rate 39 H 36 H 32 H Blood Pressure 148/86 143/89 O2 Sat by Pulse Oximetry 97 97 99 01/22/22 15:30 01/22/22 16:00 01/22/22 16:02 Temperature Pulse Rate 137 H 128 H Respiratory Rate 38 H 40 H 26 H Blood Pressure 147/99 144/80 O2 Sat by Pulse Oximetry 99 90 L 01/22/22 16:04 01/22/22 16:30 01/22/22 16:32 Temperature Pulse Rate 125 H Respiratory Rate 22 Blood Pressure 141/92 144/91 O2 Sat by Pulse Oximetry 95 01/22/22 17:00 01/22/22 17:30 01/22/22 18:00 Temperature Pulse Rate 126 H 127 H 128 H Respiratory Rate 35 H 34 H 37 H Blood Pressure 157/98 149/98 139/99 O2 Sat by Pulse Oximetry 95 100 95 01/22/22 19:00 01/22/22 19:30 01/22/22 20:00 Temperature 97.4 F L Pulse Rate 135 H 133 H 135 H Respiratory Rate 37 H 35 H 42 H Blood Pressure 137/93 148/98 135/94 O2 Sat by Pulse Oximetry 98 97 98 01/22/22 20:09 01/22/22 20:30 01/22/22 20:39 Temperature Pulse Rate 121 H Respiratory Rate 28 H 35 H 28 H Blood Pressure 135/94 142/90 O2 Sat by Pulse Oximetry 77 L 01/22/22 20:51 01/22/22 21:00 01/22/22 21:30 Temperature Pulse Rate 137 H 123 H 124 H Respiratory Rate 28 H 33 H 32 H Blood Pressure 135/94 149/89 145/92 O2 Sat by Pulse Oximetry 98 98 100 01/22/22 21:46 01/22/22 22:00 01/22/22 22:30 Temperature Pulse Rate 112 H 125 H 129 H Respiratory Rate 39 H 35 H Blood Pressure 144/99 155/90 O2 Sat by Pulse Oximetry 99 88 L 100 01/22/22 23:00 01/22/22 23:30 01/23/22 00:00 Temperature 97.6 F Pulse Rate 129 H 128 H 128 H Respiratory Rate 34 H 34 H 36 H Blood Pressure 145/90 151/93 153/92 O2 Sat by Pulse Oximetry 100 100 99 01/23/22 00:30 01/23/22 00:32 01/23/22 01:00 Temperature Pulse Rate 130 H 132 H Respiratory Rate 48 H 30 H 35 H Blood Pressure 149/97 142/83 O2 Sat by Pulse Oximetry 100 98 01/23/22 01:02 01/23/22 01:30 01/23/22 02:00 Temperature Pulse Rate 130 H 130 H Respiratory Rate 30 H 36 H 34 H Blood Pressure 139/89 136/83 O2 Sat by Pulse Oximetry 96 94 L 01/23/22 02:30 01/23/22 03:00 01/23/22 03:30 Temperature Pulse Rate 130 H 130 H 126 H Respiratory Rate 35 H 34 H 36 H Blood Pressure 142/85 146/89 129/81 O2 Sat by Pulse Oximetry 98 97 96 01/23/22 04:00 01/23/22 04:30 01/23/22 05:00 Temperature 98.1 F Pulse Rate 129 H 130 H 134 H Respiratory Rate 40 H 44 H 41 H Blood Pressure 128/81 137/82 134/88 O2 Sat by Pulse Oximetry 99 100 100 03/06/22 05:30 01/23/22 06:00 01/23/22 06:02 Temperature Pulse Rate 138 H 143 H 138 H Respiratory Rate 42 H 36 H 35 H Blood Pressure 135/84 128/74 128/74 O2 Sat by Pulse Oximetry 100 100 99 01/23/22 06:26 01/23/22 06:30 01/23/22 07:00 Temperature Pulse Rate 140 H 135 H Respiratory Rate 30 H 33 H 33 H Blood Pressure 107/74 114/75 O2 Sat by Pulse Oximetry 100 100 01/23/22 07:30 01/23/22 08:00 01/23/22 08:30 Temperature Pulse Rate 136 H 137 H 132 H Respiratory Rate 32 H 33 H 34 H Blood Pressure 123/76 115/81 127/83 O2 Sat by Pulse Oximetry 100 100 100 01/23/22 09:00 01/23/22 09:15 01/23/22 09:24 Temperature Pulse Rate 135 H 137 H Respiratory Rate 34 H Blood Pressure 129/78 126/78 O2 Sat by Pulse Oximetry 100 97 01/23/22 09:30 01/23/22 09:45 01/23/22 10:00 Temperature Pulse Rate 114 H 113 H Respiratory Rate 36 H 30 H 28 H Blood Pressure 134/87 148/79 O2 Sat by Pulse Oximetry 100 100 01/23/22 10:15 01/23/22 10:30 01/23/22 11:00 Temperature Pulse Rate 123 H 133 H Respiratory Rate 30 H 33 H 40 H Blood Pressure 157/85 172/100 O2 Sat by Pulse Oximetry 100 100 01/23/22 11:03 01/23/22 11:04 01/23/22 11:10 Temperature Pulse Rate 134 H 132 H 123 H Respiratory Rate 40 H 40 H 40 H Blood Pressure 170/93 159/96 155/86 O2 Sat by Pulse Oximetry 100 100 100 01/23/22 11:28 01/23/22 11:30 01/23/22 12:00 Temperature Pulse Rate 126 H 126 H 122 H Respiratory Rate 37 H 39 H 24 Blood Pressure 156/91 157/90 129/78 O2 Sat by Pulse Oximetry 100 100 100 01/23/22 12:30 01/23/22 13:00 01/23/22 13:30 Temperature Pulse Rate 118 H 117 H 123 H Respiratory Rate 31 H 31 H 33 H Blood Pressure 120/73 134/80 143/88 O2 Sat by Pulse Oximetry 100 100 100 01/23/22 13:51 01/23/22 14:00 01/23/22 14:21 Temperature Pulse Rate 128 H Respiratory Rate 33 H 33 H 30 H Blood Pressure 149/94 O2 Sat by Pulse Oximetry 100 01/23/22 14:30 01/23/22 15:00 01/23/22 15:01 Temperature Pulse Rate 135 H 141 H 140 H Respiratory Rate 34 H 36 H 36 H Blood Pressure 157/95 155/89 O2 Sat by Pulse Oximetry 100 100 100 01/23/22 15:30 01/23/22 15:39 Temperature Pulse Rate 136 H 123 H Respiratory Rate 33 H 33 H Blood Pressure 165/89 143/88 O2 Sat by Pulse Oximetry 100 100 Labs: Laboratory Last Values WBC 25.3 X10^3/uL (3.6-10.0) H 01/23/22 10:21 RBC 3.20 X10^6/uL (4.7-6.0) L 01/23/22 10:21 Hgb 9.7 g/dL (13.5-18.0) L 01/23/22 10:21 Hct 29.2 % (42.0-54.0) L 01/23/22 10:21 MCV 91.4 fL (80.0-100.0) 01/23/22 10:21 MCH 30.3 pg (27.0-34.0) 01/23/22 10:21 MCHC 33.1 g/dL (33.0-35.0) 01/23/22 10:21 RDW 15.3 % (11.6-16.5) 01/23/22 10:21 Plt Count 307 X10^3/uL (150.0-450.0) 01/23/22 10:21 Plt Count Comment Adequate (ADEQUATE) 01/23/22 10:21 MPV 7.4 fL (7.4-11.0) 01/23/22 10:21 Neut % (Auto) 90.3 % (42.0-75.0) H 01/23/22 10:21 Lymph % (Auto) 1.1 % (21.0-51.0) L 01/23/22 10:21 Kimble % (Auto) 8.4 % (0.0-13.0) 01/23/22 10:21 Eos % (Auto) 0.0 % (0.9-2.9) L 01/23/22 10:21 Baso % (Auto) 0.2 % (0.2-1.0) 01/23/22 10:21 Neut # (Auto) 22.8 x10^3/uL (2.2-4.8) H 01/23/22 10:21 Lymph # (Auto) 0.3 X10^3/uL (1.3-2.9) L 01/23/22 10:21 Kimble # (Auto) 2.1 x10^3/uL (0.3-0.8) H 01/23/22 10:21 Eos # (Auto) 0.0 x10^3/uL (0.0-0.2) 01/23/22 10:21 Baso # (Auto) 0.1 X10^3/uL (0.0-0.1) 01/23/22 10:21 Absolute Nucleated RBC 0.0 /100WBC 01/23/22 10:21 Total Counted 100 01/23/22 10:21 Neutrophils % (Manual) 94 % (39-76) H 01/23/22 10:21 Band Neutrophils % 5 % (0-10) 01/21/22 16:21 Lymphocytes % (Manual) 1 % (13-43) L 01/23/22 10:21 Monocytes % (Manual) 5 % (4-9) 01/23/22 10:21 Eosinophils % (Manual) 1 % (0-6) 01/20/22 14:37 Plt Morphology Comment Normal (NORMAL) 01/23/22 10:21 RBC Morphology Normal (NORMAL) 01/23/22 10:21 PT 13.6 SECONDS (11.8-14.3) 01/20/22 14:37 INR Target Range - 01/20/22 14:37 INR 1.09 (0.8-1.3) 01/20/22 14:37 APTT 38.1 SECONDS (22.9-36.5) H 01/23/22 10:21 PTT Comment - 01/23/22 10:21 Fibrinogen 388 mg/dL (239-489) 01/23/22 10:21 Sample Site Left rad 01/23/22 13:12 ABG pH 7.370 (7.35-7.45) 01/23/22 13:12 ABG pCO2 51.0 mmHg (35.0-45.0) H* 01/23/22 13:12 ABG pO2 121.0 mmHg (80.0-100.0) H 01/23/22 13:12 ABG HCO3 29.5 mmol/L (22-26) H 01/23/22 13:12 ABG O2 Saturation 99.0 % (90-100) 01/23/22 13:12 ABG Base Excess 3.3 mmol/L (-2.0-2.0) H 01/23/22 13:12 Maciel Test Pos 01/23/22 13:12 A-a Gradient 172.0 mmHg 01/23/22 13:12 FiO2 50.0 01/23/22 13:12 Blood Gas Comments Kayleen well 01/23/22 13:12 Sodium 136 mmol/L (136-145) 01/23/22 08:26 Corrected Sodium 136 mmol/L (136-145) 01/23/22 08:26 Potassium 3.6 mmol/L (3.5-5.1) 01/23/22 08:26 Chloride 101 mmol/L (98-107) 01/23/22 08:26 Carbon Dioxide 25.4 mmol/L (21-32) 01/23/22 08:26 BUN 15 mg/dL (7-18) 01/23/22 08:26 Creatinine 0.48 mg/dL (0.70-1.30) L 01/23/22 08:26 Est GFR (MDRD) Af Amer > 60 (>60) 01/23/22 08:26 Est GFR (MDRD) Non-Af > 60 (>60) 01/23/22 08:26 Glucose 112 mg/dL (65-99) H 01/23/22 08:26 POC Glucose (mg/dL) 128 mg/dL (65-99) H 01/23/22 01:53 Lactic Acid 0.7 mmol/L (0.4-2.0) 01/23/22 08:26 Calcium 7.6 mg/dL (8.5-10.1) L 01/23/22 08:26 Corrected Calcium 9.4 mg/dL (8.5-10.1) 01/23/22 08:26 Total Bilirubin 0.50 mg/dL (0.2-1.0) 01/23/22 08:26 AST 66 Units/L (15-37) H 01/23/22 08:26 ALT 24 Units/L (12-78) 01/23/22 08:26 Alkaline Phosphatase 108 Units/L (46-116) 01/23/22 08:26 Total Protein 5.3 g/dL (6.4-8.2) L 01/23/22 08:26 Albumin 1.7 g/dL (3.4-5.0) L 01/23/22 08:26 Globulin 3.6 g/dL (2.5-4.5) 01/23/22 08:26 Albumin/Globulin Ratio 0.5 Ratio (1.1-2.1) L 01/23/22 08:26 Specimen Type Catherized urine 01/20/22 22:50 Urine Color Straw (YELLOW) 01/20/22 22:50 Urine Appearance Clear (CLEAR) 01/20/22 22:50 Urine pH 8.0 (5.0 - 8.0) 01/20/22 22:50 Ur Specific [place] 1.010 (1.000-1.030) 01/20/22 22:50 Urine Protein Negative (NEGATIVE) 01/20/22 22:50 Urine Glucose (UA) Negative (NEGATIVE) 01/20/22 22:50 Urine Ketones Negative (NEGATIVE) 01/20/22 22:50 Urine Occult Blood Negative (NEGATIVE) 01/20/22 22:50 Urine Nitrite Negative (NEGATIVE) 01/20/22 22:50 Urine Bilirubin Negative (NEGATIVE) 01/20/22 22:50 Urine Urobilinogen Normal (NORMAL) 01/20/22 22:50 Ur Leukocyte Esterase Negative (NEGATIVE) 01/20/22 22:50 SARS-CoV-2 (PCR) Negative (NEGATIVE) 01/23/22 13:25 SARS CoV-2 RNA Rapid LEYDA Negative (NEGATIVE) 01/20/22 14:14 Reason For Visit: WOUND TO LEFT GREAT TOE Discharge Date Discharge Date: 01/23/22 Discharge Diagnosis All Active Problems (Updated 01/23/22 @ 16:35 by Gianni Palacios) Confusion (Acute) Pneumonia (Acute) Critical limb ischemia of left lower extremity (Acute) History of CVA (cerebrovascular accident) (Acute) Hx of myocardial infarction (Acute) GERD (gastroesophageal reflux disease) (Acute) COPD (chronic obstructive pulmonary disease) (Acute) Plan of Treatment: Continue with present treatment and follow up plan. Pt is to keep follow up appointment as instructed and take medications as ordered. Discharge Medications Discharge Medications: acetaminophen [From Darvocet-N] Allergy (Verified 01/07/22 16:56) propoxyphene [From Darvocet-N] Allergy (Verified 01/07/22 16:56) CONTINUE taking the following medications See nursed notes for his current inpatient medications Discharge Disposition Assessment: Patient in critical condition. Discharge Disposition: to [facility] critical care unit Discharge Condition: Patient is very ill with , critical left foot ischemia, pneumonia, and confusion . Discharge Plan Discharge Plan Hospital Course: 66 year old male with significant history of tobacco abuse and rest pain of the left foot with gangrenous left great toe.He was seen in my office in mid- December. On January 10 he was taken to the operating Suite where you underwent angiography showing normal iliac arteries with severe disease of the mid left superficial femoral artery with occlusion of both the distal anterior tibial artery and distal posterior tibial artery . At that time he underwent angioplasty of the anterior tibial and posterior tibial arteries as well as atherectomy and drug-coated balloon angioplasty and Drug coated stenting of the left superficial femoral artery. He was discharged on Eliquis 2. 5 mg bid and aspirin in addition to his usual medications. He continued to smoke heavily and was seen in follow up in my office on January 18 complaining of pain of the left foot . Repeat CT angiogram show diminutive flow through the entire left leg. At that time there were no beds for him to be admitted. He remained on anticoagulation and was admitted on the 20 of January and placed on a Heparin drip and taken to the operating Suite on January 21.Repeat arteriogram showed complete total occlusion of the mid and distal left superficial femoral artery as well as complete occlusion of the entire left posterior tibial and peroneal arteries and the distal left anterior tibial artery . I performed angioplasty of the left anterior tibial artery and the peroneal artery with atherectomy and drug-coated balloon angioplasty of the left superficial femoral artery. Follow- up arteriogram showed very slow flow of the left leg consistent with Outlet obstruction. Arteriogram showed poor flow into his left foot which was different from the arteriogram carried out on the 10 of January. Fot this reason a thrombolytic EKOS catheter was placed down the left posterior tibial artery and he was started on TPA .Post procedure he had increasing confusion and tachycardia consistent with alcohol withdrawal. We had planned to give him TPA over the weekend and return on Monday to reassess his left leg with arteriography. His oxygen saturatione began to fall on the morning of Monday the 23 of January and repeat chest x-ray showed evidence of bilateral pneumonia. His foot remained cool with Doppler flow signal identified only to the left popliteal artery. At the family's request I tried to transfer him to [facility] in [place] but they had no beds available. They suggested [facility] in [place] and initially Dr. Cantrell, building specialist said a bed might be available on the afternoon of Monday the 23 of January. Follow up t [facility] calls revealed they would not be evaluating until 7 p. M. therefore I call [facility] [facility] in [place] and Dr. Huggins , building specialist, has accepted him as a patient transfer. He asked for the patient be intubated to protect his Airway during transport. That has been carried out. I also discussed the patient care with the vascular surgeon interventional tech at [facility], Dr. Duong ,who recommended that I remove the thrombolytic catheter from the left leg and the destination sheath from the right femoral artery and place an angio seal device. That has been done. Patience remains hemodynamically stable at this time . White blood cell count has continued [place] [address]. He is on zosyn 3. 375 mg IV q 6 hours and Rocephin 1 g 24 hours. Hs metabolic profile is within normal limits. HIs urine output has been trending downward but is between 20 andf 30 cc per hour . Patient Disposition: [facility] Condition: Stable Health Concerns: Post Hospitalization: new medications and changes needed to prevent readmission or further decline. Pt educated and given instructions on all concerns. Plan of Treatment: Continue with present treatment and follow up plan. Pt is to keep follow up appointment as instructed and take medications as ordered. Assessment: Patient in critical condition. Prescriptions: No Action tizanidine 4 mg tablet 4 mg PO TID PRN (Reason: Muscle Spasm) RF: 0 mirtazapine 30 mg tablet 30 mg PO HS RF: 0 esomeprazole magnesium 40 mg capsule,delayed release(DR/EC) 40 mg PO DAILY RF: 0 gabapentin 300 mg capsule 300 mg PO TID RF: 0 montelukast 10 mg tablet 10 mg PO DAILY RF: 0 budesonide-formoterol [Symbicort] 160-4.5 mcg/actuation HFA aerosol inhaler 2 puff INHALATION BID RF: 0 oxycodone 20 mg tablet 20 mg PO Q6H PRN (Reason: Pain) RF: 0 levetiracetam 500 mg tablet extended release 24 hr 1,000 mg PO DAILY RF: 0 Eliquis 2.5 mg Tablet 2.5 mg PO BID RF: 0 zolpidem [Ambien] 10 mg Tablet 10 mg PO QHS PRNRF: 0 Spiriva with HandiHaler 18 mcg Capsule, W/Inhalation Device 1 cap INHALATION ONCE RF: 0 Orders to Discharge Patient Discharge Orders: Discharge (Routine); Ordered 01/23/22 Ordered By: Gianni Palacios Discharge by Transfer to Outside Facility (Routine); Ordered 01/23/22 Ordered By: Gianni Palacios Follow ups/Referrals Follow ups/Referrals: MACIEL GUZMAN [Primary Care Provider] - 1 WEEK
[2022-01-23 17:44] VITALS: BP 140/88
--- NOTE | 2022-01-23 18:08 | DR.OPNOTE ---
OP NOTE Pre-Op Diagnosis: Ischemic left leg, pneumonia Post-Op Diagnosis: same Procedure Date Date Of Procedure: 01/23/22 Procedure: PROCEDURE : Endotracheal intubation, removal of EKOS catheter left leg and destination sheath from right leg with closure of puncture of right common femoral artery with angio-seal device NARRATIVE : Patient was taken to the endoscopy suite and remained on the bed. He underwent endotracheal intubation by anesthesia . The right groin was prepped and draped in sterile fashion. Time out for the procedure obtained . All devices had been disconnected. Guide wire placed through the sheath after removing the EKOS catheter. EKOS sheath removed. Destination sheath removed and exchanged for a 7 Maori short vascular sheath. Vascular sheath exchanged over the guide wire for the Angio-seal device which was used to close the puncture of the right common femoral artery. There was no further bleeding. Patient taken to the recovery room. Type of Anesthesia: General Anesthetic w/ETT Findings: as above Specimen/Pathology: none Type of Fluids Used:: Normal Saline EBL: minimal Drains/Tubes Placed: None Complications:: none Needle/Sponge Count:: correct Disposition/Condition: Pt. tolerated procedure without difficulty. Returned to PACU then tranferred by ambulance to [facility]. In PACU required Dopamine drip for hypotension and Versed drip for Sedation
--- NOTE | 2022-02-01 11:30 | DR.UPDATE ---
H&P UPDATE (1) Critical limb ischemia of left lower extremity: History and Physical Update: See office note dated 01/18/2022 which serves as his H&P. H&P unchanged .Admitted 01/20 as there was no bed available prior to this . Admitted and placed on heparin drip. Discussed tobacco cessation with he and his family again. Will plan to take back to the OR on 01/21/2022 to reassess with arteriogram and intervention as appropriate of the left leg . Discussed the risks and benefits including the real risk of limb loss of the left leg. (2) COPD (chronic obstructive pulmonary disease): Opioid Risk/PDMP update Prescription drug monitoring program results: PDMP was not reviewed
== END 2022-01-23 17:30 | disposition short-term general hospital (02) | DRG 270 ==
LOC: ICU 08:54
PROVIDERS: ADMIT Surgery; ATTEND Surgery